=== PATIENT | male | born 1965 | race Caucasian/White ===

== ENCOUNTER 2022-09-15 09:47 | Day surgery (SDC) | payer MEDICAID, SELFPAY ==
--- NOTE | 2022-09-15 06:56 | W.PM.ENDDOP ---
Date of service: 09/15/22 Time of Service: 12:20 Endoscopy Report DATE OF PROCEDURE: 09/15/22 PRE-OP DIAGNOSIS: Dysphagia POST-OP DIAGNOSIS: other (esophageal stricture, retained food) PROCEDURE: EGD with biopsies SURGEON: Bianca Frost ANESTHESIA TYPE: General:No Airway ESTIMATED BLOOD LOSS: 2 PATHOLOGY: other (Bx of GE junction) COMPLICATIONS: None DISPOSITION: same day INDICATIONS: Mr. Nettles is a pleasant 57-year-old gentleman who comes in with unintentional weight loss, dysphagia and esophageal candidiasis which was treated 3 times.? I had a long discussion with him and his about the differential diagnosis with what I saw on his barium swallow.? The concern because of his smoking history is that of esophageal cancer.? Certainly he could have a severe scarring from uncontrolled reflux which was not treated for a long time.? He tells tells me that he does not feel like the omeprazole is really helping.? We discussed that if he is got scar tissue the omeprazole is not going to help with the scar tissue but it would prevent more reflux.? For now I would like him to continue that.? I would like him to eat a soft diet and use protein shakes to help keep his weight stable.? He was 135 pounds in February and he is down to 111.? His BMI is only 15.7.? We discussed the pathophysiology of reflux as well as the potential for cancer.? We reviewed the procedure in detail using a pamphlet with pictures.? I answered all of their questions to their satisfaction.? They seem to have a good understanding of the risks and benefits.? I do feel he is at increased risk for esophageal injury if I do have to dilate.? This was discussed with the patient and he understands.? Risks, benefits and complications have been reviewed. Complications include but are not limited to bleeding, pain, perforation, sore throat, aspiration, and adverse reaction to the medications.? Questions were entertained and answered to their satisfaction and they wished to proceed. No guarantees were given or implied.? I also discussed the risk of aspiration which in his case could be severe because of his underlying COPD.? If he does aspirate he may require admission for antibiotics and prednisone. FINDINGS: narrowing of esophagus. No mass. mild inflammation Retained food. No inflammation of the stomach PROCEDURE DESCRIPTION: After informed consent was obtained the patient was take to the procedure room and placed in a supine position. Monitors were applied and a time out was done. The patients name, date of , procedure type, allergies to medications and metal in their body was reviewed. A bite block was placed and the patient was sedated. Once sedated and comfortable the gastroscope was advanced through the oropharynx which was grossly normal into the esophagus. The proximal and mid-esophagus were normal. In the distal esophagus there was narrowing of the esophagus noted. I was unable top place the scope through the distal esophagus at the GE junction. A balloon was placed through the scope and through the GE junction. The GE junction was gently dialted to 20 cm. The balloon was removed and the scope was advanced into the stomach. retained food and fluid was noted within the stomach. The pylorus was noted to be narrowed as well and it was dilated with the smae soft balloon to 20 cm. The scope was then easily advanced through the pylorus into the 3rd portion of the duodenum. The duodenum was noted to be normal. The scope was retracted back into the stomach There were no ulcers. The scope was retroflexed. The cardia and fundus were noted to be normal. There was no hiatal hernia noted. The scope was retracted back into the esophagus and biopsies were done of the GE junction to rule out Rojo's. The Z line was regular. The GE junction was at 39 cm. The scope was removed and the patient was woken up and taken back to [facility] in stable condition. Follow up: Will order a gastric emptying study.
--- NOTE | 2022-09-15 06:57 | W.PM.DSUDISC ---
Date of service: 09/15/22 Time of Service: 12:06 Discharge Plan Disposition Patient Disposition: Home Condition: Stable Discharge Details Reason For Visit: EGD Attending Provider: Bianca Frost Primary Care Provider: Karine Andrews Home Meds and New Rx's Prescriptions: Continued diltiazem HCl 180 mg capsule,extended release 24 hr 180 mg PO DAILY omeprazole 40 mg capsule,delayed release(DR/EC) 40 mg PO BID budesonide-formoterol [Symbicort] 160-4.5 mcg/actuation HFA aerosol inhaler 2 puff inhalation BID levalbuterol tartrate [Xopenex HFA] 45 mcg/actuation HFA aerosol inhaler 2 puff inhalation Q4H sildenafil 100 mg tablet 100 mg PO DAILY PRN Rx Instructions: take one half to one tablet po as needed for erectile dysfunction testosterone cypionate 200 mg/mL kit 200 mg IM Q2W Rx Instructions: 200mg/ml solution. Inject 0.5ml IM every 14 days. Stiolto Respimat 2.5-2.5 mcg/actuation mist 2 puff inhalation DAILY ibuprofen 200 mg Tablet 200 mg PO PRN Discharge Instructions Instructions: Esophageal Dilation (DC), Esophageal Stricture (DC), GI (Gastrointestinal) Soft Diet (DC) Additional Instructions: Findings: narrowing of the esophagus minimal inflammation Follow up: 2 weeks Medications: Continue on Omeprazole 40 mg 2 x a day Test: an order was sent to [facility] for a Gastric emptying study Diet: soft diet until Tuesday Please call if you develop: fevers >101.5 Nausea or Vomiting Abdominal pain that is not transient Rectal bleeding that is more then a tbsp A hard abdomen and inability to pass gas DAY SURGERY UNIT POST ENDOSCOPY INSTRUCTIONS Instructions for everyone who is given Anesthesia: For your safety, please do the following for the next 24 Hours: a. Do not drive or operate dangerous equipment b. Do not drink alcohol beverages or use any recreational drugs for the first 24 hours or while taking pain medications. The medications in your body may have a reaction that can be dangerous. c. Do not make any important decisions or sign any important papers 1. Generally there are no restrictions on your activity after a day or so has gone by, but you may feel a bit fatigued for a few days. 2. After you arrive home you may have a light meal and return to a normal diet as you can tolerate it without feeling sick to your stomach. 3. After surgery, you may feel pain or discomfort. This should be only transient, but if it persists please contact your doctor. 4. If there are any questions regarding the findings of your procedure, please feel free to contact your doctor. 6. If you are unable to contact your doctor with a problem, contact the hospital at [phone]. 7. Continue all your regular medications unless directed otherwise. I understand the above instructions and have no questions. Signature of Patient or Responsible Adult Escort Date/Time Name of Responsible Adult Escort Signature of Nurse Date/Time Activity:: Activity as Tolerated Shower/Bathe:: 24 hours Diet:: soft DS: Diagnosis Discharge Diagnosis (1) Dysphagia: Status: Acute Asessment and Plan: Patient is seen and examined after their endoscopy. Patient has minimal sore throat. They have been able to tolerate liquids. They do not have any Nausea or Vomiting. They are not having any chest pain or shortness of breath. They have been able to pass gas and are not having any abdominal pain or distention. they have not vomited any blood. The vital signs have been stable-see nursing notes. We discussed findings on their endoscopy We reviewed the importance of lifestyle modifications- see diet recommendations We reviewed any new medications that the patient may be prescribed- see medicine reconciliation. Patient will either be sent a letter with the biopsy results or follow up in the office- see discharge instructions Patient was given explicit instructions for emergency follow up post endoscopy- see discharge instructions Patient verbalized understanding and was discharged in stable and satisfactory condition. See nursing notes.
[2022-09-15 10:20] VITALS: BP 133/79; PULSE 70; RESP 18; TEMP 36.7; O2SAT 99
[2022-09-15] MEDS: Lactated Ringers 1,000 ML 80 ML IV (10:25)
--- NOTE | 2022-09-15 10:40 | ANES.PREOP_ITS ---
General Info Date of Service Date Performed: 09/15/22 Height: 5 ft 11 in Weight: 51.1 kg Body Mass Index (BMI): 15.7 Surgical Procedure: Operation Date: 09/15/22 11:05 Proposed Procedure Side Surgeon p Gastroscopy with Dilation Bianca Frost MD Actual Procedure Side Surgeon p Gastroscopy with Dilation Not Applicable Bianca Frost MD Pre-Op Diagnosis Post-Op Diagnosis EGD Meds Allergies and Home Medications Allergies Allergy/AdvReac Type Severity Reaction Status Date / Time No Known Allergies Allergy Unverified 09/15/22 10:15 Home Medication Medication Instructions Recorded budesonide-formoterol HFA 160 2 puff inhalation BID 09/10/22 mcg-4.5 mcg/actuation aerosol inhaler (Symbicort) diltiazem HCl 180 mg capsule,24 180 mg PO DAILY 09/10/22 hr,extended release levalbuterol tartrate 45 2 puff inhalation Q4H 09/10/22 mcg/actuation aerosol inhaler (Xopenex HFA) omeprazole 40 mg capsule,delayed 40 mg PO BID 09/10/22 release sildenafil 100 mg tablet 100 mg PO DAILY PRN 09/10/22 testosterone cypionate 200 mg/mL 200 mg IM Q2W 09/10/22 intramuscular kit tiotropium 2.5 mcg-olodaterol 2.5 2 puff inhalation DAILY 09/10/22 mcg/actuation mist for inhalation (Stiolto Respimat) ibuprofen 200 mg tablet 200 mg PO PRN 09/15/22 Current Visit Medications: Current Medications Generic Name Dose Route Start Last Admin Trade Name Freq PRN Reason Stop Dose Admin Ringer's Solution 1,000 mls @ 80 mls/hr 09/15/22 06:00 IV 10/10/22 23:59 INFUSION [facility] IV Miscellaneous Supplies 1 each 09/15/22 06:00 Iv Access IV 10/10/22 23:59 DIRECTED [facility] Ondansetron HCl 4 mg 09/15/22 06:58 Ondansetron 4 Mg/2 Ml Vial IVP 10/15/22 06:57 Q4H PRN PRN Nausea / Vomiting Sodium Chloride 0 ml 09/15/22 06:00 Normal Saline Flush 10 Ml Syr IV 10/10/22 23:59 PRN PRN Sodium Chloride 0 ml 09/15/22 06:00 Normal Saline 10 Ml Vial IJ 10/10/22 23:59 DIRECTED PRN Sterile Water 0 ml 09/15/22 06:00 Water,Injection,Sterile 10 Ml Vial IJ 10/10/22 23:59 DIRECTED PRN PFSH Active Problems Active Problems: Problem Status Onset Code Dysphagia R13.10 Unintentional weight loss R63.4 Esophageal stricture K22.2 COPD (chronic obstructive pulmonary disease) J44.9 SVT (supraventricular tachycardia) I47.1 Medical History Medical History Collapse of right lung about 32 years ago approx age 25 History of COVID-19 2020 and 2022 Medical History Comments:: Pt. reports heart rate dropped low Surgical History Surgical History H/O right inguinal hernia repair as a child History of hydrocelectomy History of surgical removal of testicle as a child for torsion S/P thoracotomy with blebectomy and pleuredesis in 1993 Tobacco Smoking/Tobacco Use Status: Former Tobacco Use Alcohol Alcohol Intake: never Substance Use Substance use: Never Substance use type: does not use Vital Signs and Lab Results Vital Signs Most Recent Vital Signs in EMR: Most Recent Vital Signs Temp Pulse Resp BP Pulse Ox 36.7 C 70 18 133/79 99 09/15/22 10:20 09/15/22 10:20 09/15/22 10:20 09/15/22 10:20 09/15/22 10:20 Lab Results Blood Type / Crossmatch: No Data to Display Complete Blood Count: No Data to Display Complete Metabolic Panel: No Data to Display Liver Function Panel: No Data to Display Coagulation Panel: No Data to Display Cardiac Panel: No Data to Display Arterial Blood Gas: No Data to Display Venous Blood Gas: No Data to Display Pancreas Panel: No Data to Display Thyroid Panel: No Data to Display Infectious Disease: No Data to Display Blood Cultures: No Data to Display Toxicology Panel: No Data to Display Anesthesia Assessment and Plan Anesthesia History Personal History: No History of Anesthesia Complications and Other Family History: No Family History of Anesthesia Complications Exercise Tolerance Exercise Tolerance: Metabolic Equivalents<4 Pertinent Negatives Pertinent Negatives: No Symptoms of GERD Cardiac & Pulmonary Exam Cardiac Exam: Normal S1/S2 Heart Sounds Pulmonary Exam: Clear Bilateral Breath Sounds (decreased bilt.) Implantable Cardiac Device Does patient have a Pacemaker or an ICD?: No Airway Exam Known Difficult Airway: No Mallampati Class: 1 Mouth Opening: Normal (> 3cm) Thyromental Distance: Greater than 3 cm Neck Range of Motion: Full ROM Neck Circumference: Normal Teeth Condition: Normal Dentition ASA Classification ASA Score: ASA 3 Emergency Case?: No NPO Status NPO Status: NPO Clears >2 hours, Solids >8 hours Anesthesia Plan Resuscitation Status: Full Code Anesthesia Technique: General Anesthesia Airway Planned: Natural Airway Monitors Used: Standard Monitors
[2022-09-15 10:43] VITALS: BMI 15.7
--- NOTE | 2022-09-15 11:05 | ESO_PTH ---
PATIENT: Tho Lubin LOC: [facility] U#:[id number] AGE/SX: 57/M ROOM: RE09/15/[address]: Bianca Frost MD : 1965 BED: DIS: 09/15/2022 SPEC #: [id number] RECD: 09/16/22 12:37 STATUS: JUANY REJevon #: [id number] MARI: 09/15/22 11:[address]: Bianca Frost DEPT: Surgical Specimen RECD BY: Pati Valentino ENTERED: 09/16/22 12:38 SP TYPE: Eso CHRISTINE DR: Karine Andrews Tissues: 1 - ESOPHAGUS BIOPSY Procedures: GROSS AND MICRO LEVEL 4 Comments: [id number]
[2022-09-15 11:22] VITALS: BP 113/80; PULSE 63; RESP 18; TEMP 36.4; O2SAT 97
--- NOTE | 2022-09-15 11:49 | W.ANESPOSTOP ---
Postoperative Evaluation Date, Time and Location Date Performed: 09/15/22 Time Performed: 11:49 Patient Location: Day Surgery Unit Vital Signs Most Recent Imported Vital Signs: Most Recent Vital Signs Temp Pulse Resp BP Pulse Ox 36.4 C L 63 18 113/80 97 09/15/22 11:22 09/15/22 11:22 09/15/22 11:22 09/15/22 11:22 09/15/22 11:22 Pain Score Most Recent Pain Score: Most Recent Pain Score Pain Level 0 09/15/22 10:20 Assessment Mental Status: Awake (Alert & Oriented to Patient Baseline) Airway and Respiratory Function: Patent airway with normal (patient baseline) respiratory exam Cardiovascular Function: Hemodynamically Stable Hydration Status: Adequately Hydrated Nausea & Vomiting: No Nausea or Vomiting Pain: Pt. Denies Any Pain Peripheral Nerve Block: Patient did not receive a nerve block
[2022-09-15 12:03] VITALS: BP 112/70; PULSE 65; RESP 18; TEMP 36.7; O2SAT 99
== END 2022-09-15 12:27 | disposition home or self-care (01) ==
PROVIDERS: PCP Family Medicine; Visit Provider Surgery
PROC: 0D758ZZ Dilation of Esophagus, Via Natural or Artificial Opening Endoscopic (ICD-10-PCS; CPT 43245; principal; 2022-09-15 11:00)
DX: K22.2 Esophageal obstruction (principal); R13.10 Dysphagia, unspecified; R63.4 Abnormal weight loss; Z68.1 Body mass index [BMI] 19.9 or less, adult; Z87.891 Personal history of nicotine dependence; K31.1 Adult hypertrophic pyloric stenosis; K22.89 Other specified disease of esophagus
CPT/HCPCS: 43245; 43249; 88305; J2001

== ENCOUNTER 2022-09-20 15:25 | Inpatient (IN) | payer MEDICAID, SELFPAY ==
[2022-09-20] VITALS (55 sets, daily range): BP systolic 110–147; BP diastolic 75–82; PULSE 67–87; RESP 10–23; TEMP 37.4–37.7; O2SAT 92–99
--- NOTE | 2022-09-20 | DI.CT_ITS ---
Exam(s) CT CHEST PE CTA EXAM: CT CHEST PE CTA CLINICAL HISTORY: esophageal stricture/hx of smoking. TECHNIQUE: Imaging Protocol: CT angiography of the chest was performed using pulmonary embolus francis col. Multi planar reconstructions were performed. CONTRAST MATERIAL: Intravenous: Omnipaque 350 Contrast volume: 100 cc COMPARISON: No exams were available for comparison FINDINGS: CHEST: PULMONARY ARTERIES: There are no intraluminal filling defects to suggest acute pulmonary emboli. LUNGS: Advanced emphysematous changes. . abutting the major fissure in the apical posterior segment of the left upper lobe is a partially cavitated 1.8 by 1.7 cm spiculated nodule.. In the right upper lobe, medially there is a 1.9 x 1.7 cm spiculated nodule. There is also a more peripherally located 7 mm nodule in the mid lateral right lung which is fissure related. There are no pleural effusions. MEDIASTINUM: No obvious hilar nor mediastinal adenopathy. Esophagus is significantly dilated due to the high-grade stricture, as seen on the recent barium swallow study. CARDIAC: Heart size is upper normal. There is no pericardial effusion.Caliber of the thoracic aorta is within normal limits. No dissection. There is no significant shift of the interventricular septum . PARTIALLY VISUALIZED UPPERMOST ABDOMEN: Cachexia. Renal cysts. Heart contrast seen in the stomach f rom barium swallow study performed earlier same date. OSSEOUS: No significant osseous lesions.No fractures.. IMPRESSION: 1. No evidence of acute pulmonary emboli. No evidence of pulmonary infarction.No pleural effusions. 2. However, there are spiculated nodules bilaterally which are suspicious for neoplasm, these in the apical posterior segment of the left upper lobe and medially in the right upper lobe. No obvious jose j nopathy. 3. Dilated esophagus which is related to the previously documented stricture at the GE junction RADIATION DOSE DELIVERED: 283.75mGy.cm Total DLP DATA REPOSITORY: All CT scans at this facility are submitted to the National Radiology Data Registry (NRDR) Dose Index Registry (DIR) with the [employer] (ACR). RADIATION OPTIMIZATION: All CT scans at this facility use at least one of these dose optimization te chniques: automated exposure control; mA and/or kV adjustment per patient size (includes targeted exa ms where dose is matched to clinical indication); or iterative reconstruction.
--- NOTE | 2022-09-20 15:30 | RT.EKG_ITS ---
APPROVED REPORT Exam: Resting ECG Reason for Exam: weakness Patient Location: E HR:72 bpm ECG Measurements Heart Rate 72 AXIS TN 137 P 86 QRSd 98 QRS 72 QT 388 T 20 QTc 424 Conclusion Sinus rhythm...normal P axis, V-rate 60- 99
[2022-09-20] MEDS: Lactated Ringers 1,000 ML 1000 ML IV (16:08)
[2022-09-20 16:12] LABS: Abs Immature Grans 0.02 10^3/uL (0.0-0.06); Absolute Basophil Count 0.06 10^3/uL (0.0-0.2); Absolute Eosinophil Count 0.02 10^3/uL (0.0-0.7); Absolute Lymphocyte Count 1.15 10^3/uL (1.2-3.4); Absolute Monocyte Count 0.42 10^3/uL (0.1-0.8); Absolute Neutrophil Count 7.18 10^3/uL (1.2-6.7); Basophils % 0.7; Eosinophils % 0.2; HCT 48.8 % (40.0-50.0); HGB 15.3 g/dL (13.5-17.5); Immature Grans % 0.2; MCH 28.4 pg (27.0-33.0); MCHC 31.4 % (32.0-36.0); MCV 91 fL (80-95); MPV 8.7 fL (8.0-11.0); Monocytes % 4.7; Neutrophils % 81.2; Platelet Count 441 10^3/uL (130-400); RBC 5.39 10^6/uL (4.36-5.78); RDW 12.6 % (11.8-14.1); RDW-SD 42.4 fL; WBC 8.85 10^3/uL (4.4-10.8)
[2022-09-20 16:21] LABS: Anion Gap 12.5 mmol/L (3-11); BUN 34 mg/dL (7-18); CO2 26.5 mmol/L (21.0-32.0); Calcium 9.2 mg/dL (8.5-10.1); Chloride 103 mmol/L (98-107); Estimated GFR 87.24 (mL/min/1.73m2); Glucose 86 mg/dL (74-106); Potassium 4.3 mmol/L (3.5-5.1); Sodium 142 mmol/L (136-145)
--- NOTE | 2022-09-20 16:21 | NUR.NOTE ---
Nursing Note: Pt taking for barium study at 1605. Pt stable and in no signs of acute distress.
--- NOTE | 2022-09-20 16:43 | DI.RAD_ITS ---
Exam(s) RF BARIUM SWALLOW EXAM: RF BARIUM SWALLOW CLINICAL HISTORY: dysphagia TECHNIQUE: 2D and realtime digital imaging was performed. CONTRAST MATERIAL: Oral barium Oral water soluble contrast was administered. COMPARISON: No exams were available for comparison FINDINGS: ESOPHAGRAM: Esophagram on this ER patient was performed standing with single contrast technique. Swallowing mechanism is grossly intact and there was no aspiration evident. No evidence of Zenker's diverticulum. No obvious proximal stricture. Main finding here is distally at the GE junction where there is a tight stricture and dilatation of t he esophagus above this level. A small amount of barium does trickle through into the stomach which appears empty. IMPRESSION: High-grade stricture at the GE junction. RADIATION DOSE DELIVERED: lia Raphael=14.4 mGy
[2022-09-20] MEDS: Barium Sulfate 60% W/V 355 ML BTL PO (16:50)
[2022-09-20] MEDS: Barium Sulfate 98% W/W 140 ML BTL PO (17:01)
--- NOTE | 2022-09-20 17:26 | W.ED.GENAD ---
Discharge Plan Disposition Patient Disposition: Admit to [facility] Condition: Stable Discharge Details Clinical Impression: Esophageal stricture Admit Date/Time: 09/20/22 19:57 Admit Provider: Dulce Maria Nichole Attending Provider: Dulce Maria Nichole Primary Care Provider: Karine Andrews ED Provider: Pati Farris Discharge Data Discharge Date/Time-TO BE ENTERED AT DEPARTURE: 09/20/22 18:30 Medical Decision Making 57-year-old gentleman with history of COPD and dysphagia, status post esophageal dilation on September 15, pathology negative upon review Patient is alert, oriented, cachectic, appears chronically ill, oropharynx patent, uvula midline, moist mucous membranes, no stridor, lungs clear to auscultation, maintaining secretions Labs are consistent with dehydration today, a barium swallow was ordered after discussing with Dr. Nichole, on-call general surgeon, recommendation for admission and likely need for additional intervention after reviewing barium swallow with high-grade stricture noted distally at the GE junction Dr. Nichole to admit patient for further evaluation, patient agreeable to admission at this time IV fluid hydration was initiated and Dr. Nichole to admit patient, stable condition HPI General Date/Time Provider Initiated Documentation: 09/20/22 15:30. HPI Narrative: This 57-year-old male presents with report of dysphagia acute on chronic. Patient states he had dental extraction and in February and developed some difficulty swallowing thereafter. He was told he had several strictures and has had them dilated, the last dilation was on the fifth, he felt great the next day but then his symptoms returned the following day, he states he is able to swallow small amounts of fluid and food but thinks most of it is vomiting within minutes of ingestion. In he states that his symptoms are worse than his initial presentation after being dilated. He denies any chest pain, shortness of breath, he does feel weak today per patient. Denies any fever or chills. Denies any chest pain or current shortness of breath. Related Data Home Medications Medication Instructions Recorded Confirmed budesonide-formoterol HFA 160 2 puff inhalation BID 09/10/22 09/20/22 mcg-4.5 mcg/actuation aerosol inhaler (Symbicort) diltiazem HCl 180 mg capsule,24 180 mg PO DAILY 09/10/22 09/20/22 hr,extended release levalbuterol tartrate 45 2 puff inhalation Q4H 09/10/22 09/20/22 mcg/actuation aerosol inhaler (Xopenex HFA) omeprazole 40 mg capsule,delayed 40 mg PO BID 09/10/22 09/20/22 release sildenafil 100 mg tablet 100 mg PO DAILY PRN 09/10/22 09/20/22 testosterone cypionate 200 mg/mL 200 mg IM Q2W 09/10/22 09/20/22 intramuscular kit tiotropium 2.5 mcg-olodaterol 2.5 2 puff inhalation DAILY 09/10/22 09/20/22 mcg/actuation mist for inhalation (Stiolto Respimat) ibuprofen 200 mg tablet 200 mg PO PRN 09/15/22 Allergies Allergy/AdvReac Type Severity Reaction Status Date / Time No Known Allergies Allergy Unverified 09/20/22 15:35 General Stated Complaint: [facility] KAYKAY: 3 PFSH All Active Problems (Updated 09/21/22 @ 08:24 by MARAL Anderson) Retained food in stomach (Acute) Dysphagia (Acute) Unintentional weight loss (Acute) Esophageal stricture (Acute) COPD (chronic obstructive pulmonary disease) (Chronic) sees Dr. Melendez On 1.5 L of O2 at Night SVT (supraventricular tachycardia) (Chronic) sees Cardiology in [place] ([place]) Medical History Collapse of right lung about 32 years ago approx age 25 History of COVID-19 2020 and 2022 Surgical History H/O right inguinal hernia repair as a child History of esophagogastroduodenoscopy (~09/15/22) History of hydrocelectomy History of surgical removal of testicle as a child for torsion S/P thoracotomy with blebectomy and pleuredesis in 1993 Social History Smoking/Tobacco Use Status: Former Tobacco Use Quit Date: 03/14/18 Smoking risk assessment performed?: Yes Alcohol Intake: never Drug use: Never Substance use type: does not use Household members: spouse Housing: house Do you feel safe at home: Yes Do you feel safe in your relationship?: Yes Additional Social history: unable to assess [facility] Course Vital Signs Vital signs: Vital Signs Temperature 37.4 C 09/20/22 15:31 Pulse 78 09/20/22 15:31 Respiratory Rate 18 09/20/22 15:31 Pulse Oximetry 99 09/20/22 15:31 Temperature 37.4 C 09/20/22 15:31 Temperature Source Skin 09/20/22 15:31 Pulse 74 09/20/22 16:00 Pulse 73 09/20/22 16:10 Respiratory Rate 18 09/20/22 16:10 Respiratory Effort Normal 09/20/22 15:36 Blood Pressure 124/78 09/20/22 16:00 Blood Pressure Mean 90 09/20/22 16:00 Blood Pressure Position Sitting 09/20/22 15:31 Pulse Oximetry 97 09/20/22 17:07 Oxygen Delivery Method Room Air 09/20/22 15:31 Oxygen Flow Rate 0 09/20/22 15:31 Pain Level 0 09/20/22 15:31 Lab/Test Results Lab/Test Results: Laboratory Tests Range/Units 09/20/22 09/20/22 15:50 15:50 WBC (4.4-10.8) 10^3/uL 8.85 RBC (4.36-5.78) 10^6/uL 5.39 Hgb (13.5-17.5) g/dL 15.3 Hct (40.0-50.0) % 48.8 MCV (80-95) fL 91 MCH (27.0-33.0) pg 28.4 MCHC (32.0-36.0) % 31.4 L RDW (11.8-14.1) % 12.6 Plt Count (130-400) 10^3/uL 441 H MPV (8.0-11.0) fL 8.7 Immature Gran % 0.2 Neutrophils % 81.2 Lymphocytes % 13.0 Monocytes % 4.7 Eosinophils % 0.2 Basophils % 0.7 Nucleated RBC % (0.0-0.3) % 0.0 Absolute Neutrophils (1.2-6.7) 10^3/uL 7.18 H Absolute Lymphocytes (1.2-3.4) 10^3/uL 1.15 L Absolute Monocytes (0.1-0.8) 10^3/uL 0.42 Absolute Eosinophils (0.0-0.7) 10^3/uL 0.02 Absolute Basophils (0.0-0.2) 10^3/uL 0.06 Sodium (136-145) mmol/L 142 Potassium (3.5-5.1) mmol/L 4.3 Chloride (98-107) mmol/L 103 Carbon Dioxide (21.0-32.0) mmol/L 26.5 Anion Gap (3-11) mmol/L 12.5 H BUN (7-18) mg/dL 34 H Creatinine (0.70-1.30) mg/dL 1.0 Est GFR (CKD-EPI 2020) (mL/min/1.73m2) 87.24 Glucose (74-106) mg/dL 86 Calcium (8.5-10.1) mg/dL 9.2
--- NOTE | 2022-09-20 18:05 | W.PM.HP.N ---
Date of service: 09/20/22 Time of Service: 18:05 Assessment and Plan Assessment and plan (1) Esophageal stricture: Status: Acute Assessment and plan: -reccurrent following dilation in 09/15. worse than before pt cannot even swallow water/pills at this time. -admit for hydration/IV PPI and dilatiazem. We will have to put him in the ICU for diltiazem. Patient has a history of recurrent SVT and diltiazem controls this. -try IV decadron-and see how he responds to this in the next 12 hours. -possible EGD in am -[place] [facility] [place] This document was created with voice activated software and may contain errors. 75 mins spent with the patient today. (2) COPD (chronic obstructive pulmonary disease): Status: Chronic Assessment and plan: - Continue inhaler regimen. Patient is not on home oxygen. (3) SVT (supraventricular tachycardia): Status: Chronic History of Present Illness Narrative: Patient is a 49-year-old male well-known to the surgical service. He underwent a EGD with biopsy and dilation with Dr. Frost on 09/15. It appears to be a benign esophageal stricture. He gives no extensive history of reflux. He has been on a PPI but this does not seem to give any relief to his dysphagia symptoms. Biopsy of the GE junction was essentially normal. He has a significant stricture at the GE junction as well as the pylorus. He started having dysphagia symptoms after he had all his top teeth removed in March, and he thought it was because he was not doing well. He has subsequently obtained a upper dentition plate, but his symptoms did not improve. He had significant improvement of his symptoms 24 hours following the EGD. However in the last 36 hours his symptoms have recurred. At this point he cannot even swallow water or his own secretions. A barium swallow was done today?see [employer] for results. He has lost 20 pounds since this winter. He has a history of smoking. He has quit smoking. I do not know if he has had a pulmonary CT done in the past. Most of his healthcare is obtained at [facility]. He has never had a heart attack or stroke. He does not have diabetes. He does have COPD. He is not on ask oxygen. He had no problems with the anesthesia with his previous EGD ESOPHAGRAM: Esophagram on this ER patient was performed standing with single contrast technique. Swallowing mechanism is grossly intact and there was no aspiration evident.? No evidence of Zenker's diverticulum.? No obvious proximal stricture. Main finding here is distally at the GE junction where there is a tight stricture and dilatation of the esophagus above this level.? A small amount of barium does trickle through into the stomach which appears empty. IMPRESSION: High-grade stricture at the GE junction.? EGD 09/15 Once sedated and comfortable the gastroscope was advanced through the oropharynx which was grossly normal into the esophagus.? The proximal and mid-esophagus were normal.? In the distal esophagus there was narrowing of the esophagus noted. I was unable top place the scope through the distal esophagus at the GE junction. A balloon was placed through the scope and through the GE junction. The GE junction was gently dialted to 20 cm.? The balloon was removed and the scope was advanced into the stomach. retained food and fluid was noted within the stomach.? The pylorus was noted to be narrowed as well and it was dilated with the smae soft balloon to 20 cm. The scope was then easily advanced through the pylorus into the 3rd portion of the duodenum.? The duodenum was noted to be normal.? The scope was retracted back into the stomach ? There were no ulcers.? The scope was retroflexed.? The cardia and fundus were noted to be normal.? There was no hiatal hernia noted.? The scope was retracted back into the esophagus and biopsies were done of the GE junction to rule out Rojo's.? The Z line was regular. The GE junction was at 39 cm.? The scope was removed and the patient was woken up and taken back to [facility] in stable condition.? Follow up: Will order a gastric emptying study. Path: mild Nonspecific inflammation PFSH All Active Problems Retained food in stomach (Acute) Dysphagia (Acute) Unintentional weight loss (Acute) Esophageal stricture (Acute) COPD (chronic obstructive pulmonary disease) (Chronic) sees Dr. Melendez On 1.5 L of O2 at Night SVT (supraventricular tachycardia) (Chronic) sees Cardiology in [place] ([place]) Medical History Collapse of right lung about 32 years ago approx age 25 History of COVID-19 2020 and 2022 Surgical History H/O right inguinal hernia repair as a child History of esophagogastroduodenoscopy (~09/15/22) History of hydrocelectomy History of surgical removal of testicle as a child for torsion S/P thoracotomy with blebectomy and pleuredesis in 1993 Social History Smoking/Tobacco Use Status: Former Tobacco Use Quit Date: 03/14/18 Smoking risk assessment performed?: Yes Alcohol Intake: never Drug use: Never Substance use type: does not use Household members: spouse Housing: house Do you feel safe at home: Yes Do you feel safe in your relationship?: Yes Additional Social history: unable to assess [facility] Allergies and Home Medications Allergies Allergy/AdvReac Type Severity Reaction Status Date / Time No Known Allergies Allergy Unverified 09/20/22 15:35 Home Medications Medication Instructions Recorded Confirmed Type budesonide-formoterol HFA 160 2 puff inhalation BID 09/10/22 09/20/22 History mcg-4.5 mcg/actuation aerosol inhaler (Symbicort) diltiazem HCl 180 mg capsule,24 180 mg PO DAILY 09/10/22 09/20/22 History hr,extended release levalbuterol tartrate 45 2 puff inhalation Q4H 09/10/22 09/20/22 History mcg/actuation aerosol inhaler (Xopenex HFA) omeprazole 40 mg capsule,delayed 40 mg PO BID 09/10/22 09/20/22 History release sildenafil 100 mg tablet 100 mg PO DAILY PRN 09/10/22 09/20/22 History testosterone cypionate 200 mg/mL 200 mg IM Q2W 09/10/22 09/20/22 History intramuscular kit tiotropium 2.5 mcg-olodaterol 2.5 2 puff inhalation DAILY 09/10/22 09/20/22 History mcg/actuation mist for inhalation (Stiolto Respimat) ibuprofen 200 mg tablet 200 mg PO PRN 09/15/22 History Exam Const General: cooperative, no acute distress and frail appearing Nutritional Appearance: malnourished Orientation: alert, awake and oriented x3 Other: PHYSICAL EXAM GENERAL APPEARANCE: Alert, healthy appearance, oriented, x 3,? in no acute distress HYDRATION: Well hydrated HEAD, EYES, EARS, NECK, THROAT: Head is normocephalic, pupils equal, round, reactive to light and accommodation, ocular movement intact, sclera clear and no jaundice. ?Edentulous. Temporal muscle wasting NECK: no lymphadenopathy.? Trachea midline.? Neck supple.? No JVD LUNGS: normal respiration/normal chest excursion. ?Clear to auscultation bilaterally. ?No wheeze. ?HEART: Regular rate and rhythm. no murmurs EXTREMITY: No edema or cyanosis.? no leg pain, redness, swelling.? Muscle wasting ABDOMEN: soft and non-tender to palpation.? Normal bowel sounds.? Results Labs 09/20/22 15:50 09/20/22 15:50 Labs: Laboratory Results - last 24 hr 09/20/22 09/20/22 15:50 15:50 WBC 8.85 RBC 5.39 Hgb 15.3 Hct 48.8 MCV 91 MCH 28.4 MCHC 31.4 L RDW 12.6 Plt Count 441 H MPV 8.7 Immature Gran % 0.2 Neutrophils % 81.2 Lymphocytes % 13.0 Monocytes % 4.7 Eosinophils % 0.2 Basophils % 0.7 Nucleated RBC % 0.0 Absolute Neutrophils 7.18 H Absolute Lymphocytes 1.15 L Absolute Monocytes 0.42 Absolute Eosinophils 0.02 Absolute Basophils 0.06 Sodium 142 Potassium 4.3 Chloride 103 Carbon Dioxide 26.5 Anion Gap 12.5 H BUN 34 H Creatinine 1.0 Est GFR (CKD-EPI 2020) 87.24 Glucose 86 Calcium 9.2 Last Vital Signs Temp 37.4 C 09/20/22 15:31 Pulse 74 09/20/22 16:00 Resp 18 09/20/22 16:10 BP 124/78 09/20/22 16:00 Pulse Ox 97 09/20/22 17:07 Time Spent Time spent with Patient: >75 minutes Time was spent: preparing to see the patient(eg.review tests), obtaining and/or reviewing separately otained hiistory, ordering medications,tests, procedures, referring, communicating with other health plant care worker, indepentently interpreting results, counseling the patient and care coordination
[2022-09-20] MEDS: Normal Saline - Diluent 50 ML VIAL IJ (19:36)
[2022-09-20] MEDS: Omnipaque 350 MG/ML 100 ML BTL IJ (19:37)
[2022-09-20] MEDS: Normal Saline Flush 10 ML SYR IVP ×2 (19:41→20:25)
[2022-09-20] MEDS: Levalbuterol HFA 15 GM INH 2 PUFF IH (19:48)
[2022-09-20 19:53] LABS: Lab Add On Test DONE
--- NOTE | 2022-09-20 20:08 | DI.VRAD_ITS ---
PROCEDURE INFORMATION: Exam: CTA Chest With Contrast Exam date and time: 09/20/2022 7:36 PM Age: 57 years old Clinical indication: Other: Esophageal stricture/hx of smoking; Prior surgery; Surgery date: 6+ months; Surgery type: HX of R lung surgery May years ago after collapsed lung; Additional info: Recent ba swallow TECHNIQUE: Imaging protocol: Computed tomographic angiography of the chest with contrast. Exam focused on the arteries. 3D rendering (Not supervised by radiologist): MIP and/or 3D reconstructed images were created by the technologist. Radiation optimization: All CT scans at this facility use at least one of these dose optimization techniques: automated exposure control; mA and/or kV adjustment per patient size (includes targeted exams where dose is matched to clinical indication); or iterative reconstruction. Contrast material: OMNIPAQUE 350; Contrast volume: 60 ml; Contrast route: INTRAVENOUS (IV); COMPARISON: RF BARIUM SWALLOW 09/20/2022 4:15 PM FINDINGS: Pulmonary arteries: No pulmonary emboli. Aorta: No aortic aneurysm. No aortic dissection. Lungs: Severe emphysema observed. There is a right upper lobe nodule measuring up to 4 mm image 38 series 7. Additional 2 mm faint subpleural nodules in the right upper lobe. Cavitary lesions/reticulo nodular lesion measuring up to 1.6 cm in the left upper lobe posteriorly abutting the fissure with minimal adjacent reticulation Pleural spaces: No pneumothorax. No pleural effusion. Heart: No cardiomegaly. No pericardial effusion. Lymph nodes: No enlarged lymph nodes. Bones/joints: No acute fracture. Soft tissues: Unremarkable. Bilateral renal cysts. Dense contrast in the stomach and distal esophagus. Dilatation of the proximal and mid portions of the esophagus. Abnormal area of thickening/narrowing in the mid thoracic esophagus at the level of the abhi IMPRESSION: No pulmonary emboli observed Severe emphysema and bilateral nodules/lesions as described. Neoplasm not excluded Dense contrast in the mid esophagus. Suspected stricture/narrowing in the mid esophagus at the level of the abhi Dictated and Authenticated by: Jordon Ojeda MD. Ordering:FERNY العراقي MD
[2022-09-20] MEDS: DEXTROSE 5%-0.45% SALINE 1,000 ML 75 ML IV (20:19)
[2022-09-20] MEDS: Pantoprazole 40 MG VIAL IVP (20:25)
[2022-09-20] MEDS: Enoxaparin 40 MG/0.4 ML SYR SC (20:27)
[2022-09-20] MEDS: Dexamethasone 10 MG/ML VIAL IVP (20:28)
[2022-09-21] VITALS (44 sets, daily range): BP systolic 105–142; BP diastolic 66–85; PULSE 50–72; RESP 10–22; TEMP 35.8–37.2; O2SAT 93–100; BMI 16.0
[2022-09-21] MEDS: Budesonide/Formoterol 160/4.5 6 GM 60 PUFF INH IH ×2 (06:26→19:08)
[2022-09-21] MEDS: Levalbuterol HFA 15 GM INH 2 PUFF IH ×3 (06:38→16:53)
--- NOTE | 2022-09-21 08:28 | INITIAL_ITS ---
Date of service: 09/21/22 Time of Service: 08:28 Care Management Initial Assmt Initial Assessment REASON FOR HOSPITALIZATION:: esophageal stricture PREVIOUS FUNCTIONAL STATUS/SOCIAL/FAMILY SUPPORTS:: Kayden lives in a a single family home in [place] with his Natalia. They have 3 adult children who live locally and are supportive of the couple. 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 He is independent at baseline and receives no community services. CURRENT FUNCTIONAL STATUS:: Kayden was in the operating room when CM went to meet with him. His was available by phone and CM was able to obtain needed information from her. She does not anticipate that Kayden will need any additional services upon discharge. ADVANCE DIRECTIVES:: none on file Has patient been provided with info about the portal/API?: Yes CODE STATUS:: Full Code INSURANCE COVERAGE / FINANCIAL ISSUES:: Medicaid CURRENT HOME/COMMUNITY SERVICES/EQUIPMENT:: none PRIMARY CARE PHYSICIAN:: Karine Andrews POTENTIAL DISCHARGE NEEDS:: follow up with community providers ands plan of care PATIENT/FAMILY EDUCATION NEEDS:: Review of discharge instructions, limitations, diet, follow up plan, discuss [employer] TRANSPORTATION:: via private vehicle with family PLAN:: Anticipate Kayden will be discharged home with no new services. He will follow up with his community providers and plan of care as prescribed and [place] [employer] with family. CM will follow and assess for discharge needs. PFSH All Active Problems (Updated 09/21/22 @ 08:24 by MARAL Anderson) Retained food in stomach (Acute) Dysphagia (Acute) Unintentional weight loss (Acute) Esophageal stricture (Acute) COPD (chronic obstructive pulmonary disease) (Chronic) sees Dr. Melendez On 1.5 L of O2 at Night SVT (supraventricular tachycardia) (Chronic) sees Cardiology in [place] ([place]) Medical History Collapse of right lung about 32 years ago approx age 25 History of COVID-19 2020 and 2022 Surgical History H/O right inguinal hernia repair as a child History of esophagogastroduodenoscopy (~09/15/22) History of hydrocelectomy History of surgical removal of testicle as a child for torsion S/P thoracotomy with blebectomy and pleuredesis in 1993 Social History Smoking/Tobacco Use Status: Former Tobacco Use Quit Date: 03/14/18 Smoking risk assessment performed?: Yes Alcohol Intake: never Drug use: Never Substance use type: does not use Household members: spouse Housing: house Do you feel safe at home: Yes Do you feel safe in your relationship?: Yes Additional Social history: unable to assess [place]
[2022-09-21] MEDS: Tiotropium/Olodaterol 10 PUFF INHALER 2 PUFF IH (08:47)
[2022-09-21] MEDS: DEXTROSE 5%-0.45% SALINE 1,000 ML 75 ML IV ×2 (09:36→16:11)
--- NOTE | 2022-09-21 12:24 | W.ANESPRE ---
General Info Date of Service Date Performed: 09/21/22 Height: 5 ft 11 in Weight: 52 kg Body Mass Index (BMI): 16.0 Surgical Procedure: Operation Date: 09/21/22 12:50 Proposed Procedure Side Surgeon p Gastroscopy Dulce Maria Nichole, Meds Allergies and Home Medications Allergies Allergy/AdvReac Type Severity Reaction Status Date / Time No Known Allergies Allergy Unverified 09/20/22 15:35 Home Medication Medication Instructions Recorded budesonide-formoterol HFA 160 2 puff inhalation BID 09/10/22 mcg-4.5 mcg/actuation aerosol inhaler (Symbicort) diltiazem HCl 180 mg capsule,24 180 mg PO DAILY 09/10/22 hr,extended release levalbuterol tartrate 45 2 puff inhalation Q4H 09/10/22 mcg/actuation aerosol inhaler (Xopenex HFA) omeprazole 40 mg capsule,delayed 40 mg PO BID 09/10/22 release sildenafil 100 mg tablet 100 mg PO DAILY PRN 09/10/22 testosterone cypionate 200 mg/mL 200 mg IM Q2W 09/10/22 intramuscular kit tiotropium 2.5 mcg-olodaterol 2.5 2 puff inhalation DAILY 09/10/22 mcg/actuation mist for inhalation (Stiolto Respimat) ibuprofen 200 mg tablet 200 mg PO PRN 09/15/22 Current Visit Medications: Current Medications Generic Name Dose Route Start Last Admin Trade Name Freq PRN Reason Stop Dose Admin Budesonide/Formoterol Fumarate 2 puff 09/20/22 20:00 09/21/22 06:26 Budesonide/Formoterol 160/4.5 6 Gm 60 Puff Inh IH 2 puffs BID PAULETTE Administration Device 1 each 09/20/22 18:00 Inhaler, Assist Device DIRECTED PAULETTE Enoxaparin Sodium 40 mg 09/20/22 18:00 09/20/22 20:27 Enoxaparin 40 Mg/0.4 Ml Syr SC 40 mg Q24H PAULETTE Administration Sodium Chloride 500 mls @ 0 mls/hr 09/20/22 17:53 Saline 500ml Bag IV PRN PRN As Directed Dextrose/Sodium Chloride 1,000 mls @ 75 mls/hr 09/20/22 18:00 09/21/22 09:36 Dextrose 5%-0.45% Ns IV 75 mls/hr INFUSION PAULETTE Administration Diltiazem HCl 125 mg/ Sodium 125 mls @ 5 mls/hr 09/20/22 18:15 Chloride IV INFUSION PAULETTE Protocol 5 MG/HR IV Miscellaneous Supplies 1 each 09/20/22 18:00 Iv Access IV DIRECTED [facility] Levalbuterol 2 puff 09/21/22 12:07 Levalbuterol Hfa 15 Gm Inh IH Q4H PRN PRN Morphine Sulfate 2 mg 09/20/22 17:53 Morphine 2 Mg/Ml Syr IVP Q1H PRN PRN Ondansetron HCl 4 mg 09/20/22 17:53 Ondansetron 4 Mg/2 Ml Vial IVP Q4H PRN PRN Pantoprazole Sodium 40 mg 09/20/22 18:00 09/20/22 20:25 Pantoprazole 40 Mg Vial IVP 40 mg Q24H PAULETTE Administration Patient's Own 200 each 09/21/22 08:30 Medication ( IM Testosterone DIRECTED [facility] Cypionate 200 Mg/Ml Kit) Sodium Chloride 0 ml 09/20/22 17:53 09/20/22 20:25 Normal Saline Flush 10 Ml Syr IVP 30 ml PRN PRN Administration Tiotropium [place]/Olodaterol 2 puff 09/21/22 08:30 09/21/22 08:47 Tiotropium/Olodaterol 10 Puff Inhaler IH 2 inh DAILY PAULETTE Administration PFSH Active Problems Active Problems: Problem Status Onset Code Retained food in stomach K31.89 Dysphagia R13.10 Unintentional weight loss R63.4 Esophageal stricture K22.2 COPD (chronic obstructive pulmonary disease) J44.9 SVT (supraventricular tachycardia) I47.1 Medical History Medical History Collapse of right lung about 32 years ago approx age 25 History of COVID-19 2020 and 2022 Medical History Comments:: Pt. reports heart rate dropped low Surgical History Surgical History H/O right inguinal hernia repair as a child History of esophagogastroduodenoscopy (~09/15/22) History of hydrocelectomy History of surgical removal of testicle as a child for torsion S/P thoracotomy with blebectomy and pleuredesis in 1993 Tobacco Smoking/Tobacco Use Status: Former Tobacco Use Alcohol Alcohol Intake: never Substance Use Substance use: Never Substance use type: does not use Vital Signs and Lab Results Vital Signs Most Recent Vital Signs in EMR: Most Recent Vital Signs Temp Pulse Resp BP Pulse Ox 37.0 C 67 17 135/85 94 09/21/22 08:00 09/21/22 10:03 09/21/22 10:03 09/21/22 10:03 09/21/22 10:03 Lab Results 09/20/22 15:50 09/20/22 15:50 Blood Type / Crossmatch: No Data to Display Complete Blood Count: White Blood Count 8.85 10^3/uL (4.4-10.8) 09/20/22 15:50 Red Blood Count 5.39 10^6/uL (4.36-5.78) 09/20/22 15:50 Hemoglobin 15.3 g/dL (13.5-17.5) 09/20/22 15:50 Hematocrit 48.8 % (40.0-50.0) 09/20/22 15:50 Platelet Count 441 10^3/uL (130-400) H 09/20/22 15:50 Complete Metabolic Panel: Sodium 142 mmol/L (136-145) 09/20/22 15:50 Potassium 4.3 mmol/L (3.5-5.1) 09/20/22 15:50 Chloride 103 mmol/L (98-107) 09/20/22 15:50 Carbon Dioxide 26.5 mmol/L (21.0-32.0) 09/20/22 15:50 BUN 34 mg/dL (7-18) H 09/20/22 15:50 Creatinine 1.0 mg/dL (0.70-1.30) 09/20/22 15:50 Est GFR (CKD-EPI 2020) 87.24 (mL/min/1.73m2) 09/20/22 15:50 Magnesium 2.0 mg/dL (1.8-2.4) 09/20/22 15:50 Calcium 9.2 mg/dL (8.5-10.1) 09/20/22 15:50 Glucose 86 mg/dL (74-106) 09/20/22 15:50 Liver Function Panel: No Data to Display Coagulation Panel: No Data to Display Cardiac Panel: No Data to Display Arterial Blood Gas: No Data to Display Venous Blood Gas: No Data to Display Pancreas Panel: No Data to Display Thyroid Panel: No Data to Display Infectious Disease: No Data to Display Blood Cultures: No Data to Display Toxicology Panel: No Data to Display Imaging and Studies Imaging and Studies Study information below may be from another EMR and interpreted by another provider. Please see original notes in EMR for more complete details. EKG Summary: 10/03: sinus rhythm. Echocardiogram Summary: 2018: LVEF 55-60%, mild RV dilation with mild reduction in function. no hemodynamically sig valve dz. PAS 31. Pulmonary Function Summary: 2019: FVC 35%, FEV1 20%, severe obstruction. Anesthesia Assessment and Plan Anesthesia History Personal History: No History of Anesthesia Complications and Other Family History: No Family History of Anesthesia Complications Exercise Tolerance Exercise Tolerance: Metabolic Equivalents<4 Cardiac & Pulmonary Exam Cardiac Exam: Normal S1/S2 Heart Sounds Pulmonary Exam: Wheezing Present Implantable Cardiac Device Does patient have a Pacemaker or an ICD?: No Airway Exam Known Difficult Airway: No Mallampati Class: 1 Mouth Opening: Normal (> 3cm) Thyromental Distance: Greater than 3 cm Neck Range of Motion: Full ROM Neck Circumference: Normal Teeth Condition: Normal Dentition ASA Classification ASA Score: ASA 3 Emergency Case?: No NPO Status NPO Status: NPO Clears >2 hours, Solids >8 hours Anesthesia Plan Resuscitation Status: Full Code Anesthesia Technique: General Anesthesia Airway Planned: Natural Airway Monitors Used: Standard Monitors Preoperative Comments:: 57 yo male for EGD. Sig PMHx: COPD (o2 at night), SVT, former smoker Previous Anes: - EGD, prop/lido, airway, no issues.
[2022-09-21] MEDS: Metoprolol 5 MG/5 ML VIAL IVP (13:50)
--- NOTE | 2022-09-21 15:39 | W.PM.ENDDOP ---
Date of service: 09/21/22 Time of Service: 15:39 Endoscopy Report DATE OF PROCEDURE: 09/21/22 PRE-OP DIAGNOSIS: benign esophageal stricture at GE junction /hx of GERD POST-OP DIAGNOSIS: same SURGEON: Dulce Maria Nichole ANESTHESIA TYPE: General:No Airway ESTIMATED BLOOD LOSS: 0 PATHOLOGY: none sent COMPLICATIONS: None DISPOSITION: PACU PROCEDURE DESCRIPTION: After informed consent was obtained the patient was take to the procedure room and placed in a supine position. Monitors were applied and a time out was done. The patients name, date of , procedure type, allergies to medications and metal in their body was reviewed. A bite block was placed and the patient was sedated. Once sedated and comfortable, a 5 mm diagnostic gastroscope was advanced through the oropharynx which was grossly normal, into the esophagus. The proximal and mid-esophagus were coated with barium from [facility] 09/20. Proximal to the stricture, the esophagus is dilated. In the distal esophagus there was a stricture at 39 cm. It is approximately 3 to 4 cm long. The mucosa is appears normal. There is no signs of any tumors. There is no erosions or ulceration. I am able to pass a 5 mm diagnostic scope into the stomach. Upon retroflexion there is no abnormalities. There is no hiatal hernia. The scope was advanced into the stomach. There is no gastritis or duodenitis. The scope was not passed into the duodenum. Biopsies have been done previously and showed nonspecific inflammation at the GE junction. There is shows no signs of injury or damage from the previous dilation. But what I am visualizing today appears to be the same as what Dr. Frost saw on 09/15. That previous dilation only gave the patient relief for less than 72 hours. The scope was removed and the patient was woken up and taken back to PACU for close monitoring postprocedure secondary to his poor airway status.
--- NOTE | 2022-09-21 16:04 | W.ANESPOSTOP ---
Postoperative Evaluation Date, Time and Location Date Performed: 09/21/22 Time Performed: 16:04 Patient Location: PACU Vital Signs Most Recent Imported Vital Signs: Most Recent Vital Signs Temp Pulse Resp BP Pulse Ox 36.5 C 58 L 20 118/73 97 09/21/22 15:42 09/21/22 15:42 09/21/22 15:42 09/21/22 15:42 09/21/22 15:42 Pain Score Most Recent Pain Score: Most Recent Pain Score Pain Level 0 09/21/22 15:42 Assessment Mental Status: Awake (Alert & Oriented to Patient Baseline) Airway and Respiratory Function: Patent airway with normal (patient baseline) respiratory exam Cardiovascular Function: Hemodynamically Stable Hydration Status: Adequately Hydrated Nausea & Vomiting: No Nausea or Vomiting Pain: Pt. Denies Any Pain Peripheral Nerve Block: Patient did not receive a nerve block
--- NOTE | 2022-09-21 16:25 | NUR.NOTE ---
Nursing Note: pt transferred from ICU to room 206 on the med/surg floor. transfer was successful.
--- NOTE | 2022-09-21 16:42 | NUR.NOTE ---
Nursing Note: pt and present in the room. pt refused to use the call garcia and refused to call for assistance when needing to urinate. pt was aggressively rude. DEE DEE hernández witnessed and helped this freelance writer educate the pt and his about fall precautions and the risk of falling while having anesthesia in the system. charge nurse notified.
[2022-09-21] MEDS: Pantoprazole 40 MG VIAL IVP (17:50)
[2022-09-21] MEDS: POTASSIUM CHLORIDE/D5-0.45NACL 1,000 ML 100 MEQ IV (17:56)
--- NOTE | 2022-09-21 22:24 | PGE_ITS ---
Date of Service Date of service: 09/21/22 Time of Service: 17:30 Assessment and Plan Assessment and plan (1) Benign esophageal stricture: Status: Acute Assessment and plan: - I discussed with patient and his the findings at repeat endoscopy today. The CT shows severe emphysema but no signs of any tumor or mass effect on the esophagus. There is no signs of any tumor ulceration or erosion in the esophagus. And the biopsies were benign. Most likely he does have some degree of reflux that has been causing the stricture along with his history of smoking. He is not currently smoking anymore. He denies alcohol use. We discussed the importance of lifestyle modification for reflux including avoiding caffeine lying down after meals etc. I did discuss the case with GI at [facility]. They do feel he would be a candidate for advanced dilation. They will try to get him scheduled for a dilation on Tuesday. We do need to contact [facility] in the morning and see if they have an opening for him. Realistically it will most likely be . I discussed with the patient that what he could expect during the procedure, anesthesia, and the possibility of esophageal rupture which would necessitate surgery. We also discussed that this is a chronic condition and he is most likely going to require serial dilations to maintain patency. patient is very frustrated and angry at the idea of having to make lifestyle changes and routine doctors appointments. We discussed the nature of chronic stricture formation and the development of scar tissue and how this needs to inelasticity of the esophagus and why multiple dilations are necessary. In light of following lifestyle modification is important to avoid any further injury. We discussed dietary precautions going forward. He may need to be maintained on liquid supplementation for a while. We also discussed options if the dilation does not work, including esophagectomy versus feeding tube placement. He is quite emaciated and has pretty severe COPD/emphysema. His last echo was in 2018 at [facility]?see [employer]. He does follow with Dr. Mercado from pulmonary. We did do bedside PFTs today?see [employer]. FEV1-.58. He is not a good candidate for an esophagectomy. He has had previous bleb resection and pleurodesis for spontaneous pneumo. Continue with lifestyle modifications: no alcohol, tobacco products, Aspirin or NSAID's (ibuprofen, Motrin, Naprosyn, aleve, etc), soda pop/any carbonated beverages, caffeine (including tea & chocolate), and acidic foods, (tomatoes, citrus, onions, peppermints) spicy or fried/fatty foods. Do not lie down for 30 minutes after eating, and do not eat 2 hours prior to bedtime. Avoid wearing tight fitting clothing/ belts. -Nutrition was consulted and we will try maintaining him on Ensure clear. This document was created with voice activated software and may contain errors. 30 mins spent with the patient today. (2) Retained food in stomach: Status: Acute (3) Dysphagia: Status: Acute (4) Unintentional weight loss: Status: Acute (5) Esophageal stricture: Status: Acute (6) COPD (chronic obstructive pulmonary disease): Status: Chronic (7) SVT (supraventricular tachycardia): Status: Chronic (8) S/P thoracotomy: Objective Last Vital Signs Temp 36 C L 09/21/22 19:06 Pulse 56 L 09/21/22 19:06 Resp 20 09/21/22 19:06 BP 128/77 09/21/22 19:06 Pulse Ox 96 09/21/22 19:06 Time Spent with Patient Time Spent with Patient: 35-49 minutes Time was spent: preparing to see the patient(eg.review tests), obtaining and/or reviewing separately otained hiistory, ordering medications,tests, procedures, referring, communicating with other health care program resident, indepentently interpreting results, counseling the patient and care coordination
[2022-09-22] VITALS (13 sets, daily range): BP systolic 112–128; BP diastolic 70–78; PULSE 50–62; RESP 16–18; TEMP 35.9–36.7; O2SAT 95–100
[2022-09-22] MEDS: POTASSIUM CHLORIDE/D5-0.45NACL 1,000 ML 100 MEQ IV ×3 (03:02→22:16)
[2022-09-22] MEDS: Budesonide/Formoterol 160/4.5 6 GM 60 PUFF INH IH ×2 (07:42→19:09)
[2022-09-22] MEDS: Tiotropium/Olodaterol 10 PUFF INHALER 2 PUFF IH (07:42)
--- NOTE | 2022-09-22 09:20 | PDOC.CMPRO ---
Date of service: 09/22/22 Time of Service: 09:20 Care Management Progress Note Progress Note Text Progress Note Text: S/O:Kayden was sitting up in bed when CM met with him. He was polite and agreeable to conversation but not very talkative. Kayden stated that he is a bit bored. He is anxious to transfer to [facility] to have the esophageal dilation procedure. He has been unable to eat for some time and hopes that he will be able to do so after the procedure. He understands that he may not go to [facility] until tomorrow. Kayden did say that when he had the Endoscopy yesterday they were able to rule out a malignancy and he was happy about that. A: Tho is a 57 year old man admitted on 09/20/22 with an esophageal stricture P: Anticipate Kayden will be discharged home with no new services. He will follow up with his community providers and plan of care as prescribed and transport with family. CM will follow and assess for discharge needs.
[2022-09-22] MEDS: Metoprolol 5 MG/5 ML VIAL IVP ×2 (12:25→18:21)
[2022-09-22] MEDS: Normal Saline Flush 10 ML SYR IVP (12:26)
--- NOTE | 2022-09-22 15:16 | PHACLINREV_ITS ---
Pharmacy Admission Review Admission Clinical Review Admission Pharmacy Review: (Updated 09/21/22 @ 22:25 by Dulce Maria Nichole DO) Benign esophageal stricture (Acute) Retained food in stomach (Acute) Dysphagia (Acute) Unintentional weight loss (Acute) Esophageal stricture (Acute) No Known Allergies Allergy (Unverified 09/20/22 15:35) Resuscitation Status Full Code Height 5 ft 11 in Weight 52.2 kg Comments Comments/Follow Ups: Watch, VS, labs and for med changes (possible renal dose adjustments). Pharmacy Admission Review Renal Dosing Renal Dosing: BUN 34 mg/dL (7-18) H 09/20/22 15:50 Creatinine 1.0 mg/dL (0.70-1.30) 09/20/22 15:50 Medications needing adjustments: Reviewed (Crcl ~59 mL/min current meds okay) Anticoagulation Anticoagulation: Hgb 15.3 g/dL (13.5-17.5) 09/20/22 15:50 Hct 48.8 % (40.0-50.0) 09/20/22 15:50 Plt Count 441 10^3/uL (130-400) H 09/20/22 15:50 Creatinine 1.0 mg/dL (0.70-1.30) 09/20/22 15:50 DVT Prophylaxis: Reviewed (SCDs ordered, chemical discontinued yesterday due to potential procedure at [facility]) Therapeutic Anticoagulation: N/A Opiate Usage Evaluate Pain Scale/Pains Meds: Reviewed (patient has not used any doses of opioids so far this admission) Scheduled Bowel Reg ordered if on Opiates?: No Relevant Labs Relevant Labs: Sodium 142 mmol/L (136-145) 09/20/22 15:50 Potassium 4.3 mmol/L (3.5-5.1) 09/20/22 15:50 Chloride 103 mmol/L (98-107) 09/20/22 15:50 Magnesium 2.0 mg/dL (1.8-2.4) 09/20/22 15:50 Electrolytes, C-Reactive P, ESR: Reviewed DM Control DM Control: Reviewed (No DM noted in pt's medical history, no A1c on file) Cardiac Review BP, HR, EF%: Reviewed (HR low to normal and BP mostly within normal limits) QTc Review QTc: Reviewed (QTc 424 on admission) IV to PO Switch IV Medications: Reviewed (IV meds continue due to dysphagia) Home Meds Home Med List reviewed: Reviewed (patient is on both symbicort and stiolto) Relevent Home Meds Not ordered & why?: diltiazem (drip was discontinued and pt put on IVP metoprolol), ibuprofen (PRN), omeprazole (has pantoprazole ordered), sildenafil (PRN), Current Meds Current Medication Order Review: Reviewed Comments Comments/Follow Ups: Watch, VS, labs and for med changes (possible renal dose adjustments).
--- NOTE | 2022-09-22 17:45 | W.PM.PROGNOT ---
Date of Service Date of service: 09/22/22 Time of Service: 17:47 Assessment and Plan Assessment and plan (1) Benign esophageal stricture: Status: Acute Assessment and plan: We have made arrangements for transfer down to [facility] tomorrow for repeat EGD and dilation. Subjective Subjective Interval history since last seen: Tho said he feels a little better than the days before. He has been tolerating some slow sips of liquids. He denies any dysphagia today. Exam GI Other: His abdomen soft and nondistended. He is not tender. Objective Last Vital Signs Temp 98.1 F 09/22/22 15:43 Pulse 58 L 09/22/22 15:43 Resp 17 09/22/22 15:43 BP 123/71 09/22/22 15:43 Pulse Ox 95 09/22/22 15:43 Time Spent with Patient Time Spent with Patient: <25 minutes Time was spent: preparing to see the patient(eg.review tests) and counseling the patient
[2022-09-22] MEDS: Pantoprazole 40 MG VIAL IVP (18:26)
[2022-09-22] MEDS: Levalbuterol HFA 15 GM INH 2 PUFF IH (18:37)
[2022-09-23 03:10] VITALS: BP 114/72; PULSE 54; RESP 16; TEMP 36.1; O2SAT 98
[2022-09-23 05:32] VITALS: PULSE 52
[2022-09-23 07:00] VITALS: PULSE 67
[2022-09-23] MEDS: Tiotropium/Olodaterol 10 PUFF INHALER 2 PUFF IH (07:03)
[2022-09-23] MEDS: Levalbuterol HFA 15 GM INH 2 PUFF IH (07:04)
[2022-09-23] MEDS: Budesonide/Formoterol 160/4.5 6 GM 60 PUFF INH IH (07:05)
[2022-09-23 07:44] VITALS: BP 120/77; PULSE 67; RESP 18; TEMP 36.7; O2SAT 92
--- NOTE | 2022-09-23 08:12 | PDOC.CMPRO ---
Date of service: 09/23/22 Time of Service: 08:12 Care Management Progress Note Progress Note Text Progress Note Text: S/O:Kayden was transferred to [facility] today for an EGD and esophageal dilation. He left early in the day and had not returned when CM went to meet with him. Kayden was able to tolerate about 300ml of oral fluid intake yesterday. Kayden returned from around 4pm. He informed that he really wants to be discharged home tonight. sent a message to Dr. Nichole who indicated that he would need to be able to tolerate drinking liquids before he could go home. Kayden was given Boost and water and seemed to tolerate them well. A: Tho is a 57 year old man admitted on 09/20/22 with an esophageal stricture P: Anticipate Kayden will be discharged home with no new services. He will follow up with his community providers and plan of care as prescribed and transport with family. CM will follow and assess for discharge needs.
[2022-09-23] MEDS: Normal Saline Flush 10 ML SYR IVP (08:18)
[2022-09-23] MEDS: POTASSIUM CHLORIDE/D5-0.45NACL 1,000 ML 100 MEQ IV (08:19)
--- NOTE | 2022-09-23 09:58 | PGE_ITS ---
Date of Service Date of service: 09/23/22 Time of Service: 09:58 Assessment and Plan Assessment and plan (1) Benign esophageal stricture: Status: Acute Assessment and plan: Her GI at [facility]. The stricture was not amendable to dilation. SHe thinks she may have achalasia. He has a manometry appointment scheduled at [facility] per GI. The patient should be maintained on a clear to pur?ed diet. He will need to do clear Ensure or boost 5-6 a day to maintain weight and nutritional status. (2) Unintentional weight loss: Status: Acute (3) COPD (chronic obstructive pulmonary disease): Status: Chronic Objective Last Vital Signs Temp 36.7 C 09/23/22 07:44 Pulse 67 09/23/22 07:44 Resp 18 09/23/22 07:44 BP 120/77 09/23/22 07:44 Pulse Ox 92 09/23/22 07:44 Time Spent with Patient Time Spent with Patient: 25-34 minutes Time was spent: preparing to see the patient(eg.review tests), referring, communicating with other health healthcare project manager, counseling the patient and care coordination
[2022-09-23 15:52] VITALS: BP 128/84; PULSE 63; RESP 19; TEMP 36.7; O2SAT 93
[2022-09-23 16:31] VITALS: PULSE 58
[2022-09-23] MEDS: Acetaminophen 325 MG TAB PO (16:51)
--- NOTE | 2022-09-23 17:35 | W.PM.DS.N ---
Date of service: 09/23/22 Time of Service: 17:35 DS: Diagnosis Discharge Diagnosis (1) Benign esophageal stricture: Status: Acute (2) Unintentional weight loss: Status: Acute (3) COPD (chronic obstructive pulmonary disease): Status: Chronic Discharge Plan Disposition Condition: Stable Condition: Fair Discharge Details Reason For Visit: Esophageal stricture Admit Date/Time: 09/20/22 19:57 Admit Provider: Dulce Maria Nichole Attending Provider: Dulce Maria Nichole Primary Care Provider: Karine Andrews Home Meds and New Rx's Prescriptions: Continued diltiazem HCl 180 mg capsule,extended release 24 hr 180 mg PO DAILY budesonide-formoterol [Symbicort] 160-4.5 mcg/actuation HFA aerosol inhaler 2 puff inhalation BID levalbuterol tartrate [Xopenex HFA] 45 mcg/actuation HFA aerosol inhaler 2 puff inhalation Q4H sildenafil 100 mg tablet 100 mg PO DAILY PRN Rx Instructions: take one half to one tablet po as needed for erectile dysfunction testosterone cypionate 200 mg/mL kit 200 mg IM Q2W Rx Instructions: 200mg/ml solution. Inject 0.5ml IM every 14 days. Stiolto Respimat 2.5-2.5 mcg/actuation mist 2 puff inhalation DAILY Discontinued omeprazole 40 mg capsule,delayed release(DR/EC) 40 mg PO BID ibuprofen 200 mg Tablet 200 mg PO PRN Discharge Instructions Additional Instructions: Post?EGD?Instruction ? ?You had anesthesia for your EGD/stomach scope today.? For your safety, please do the following for the next twenty-four (24) hours: Do Not operate a motor vehicle (car, truck, motorcycle, etc.) Do Not drink alcoholic beverages or use any recreational drugs for the first 24 hours or while taking pain medications. The medications in your body may have a reaction that can be dangerous. Do Not make any important decisions or sign any important papers ? You have just had a gastroscopy (EGD) or upper GI tract examination. It is important for your smooth recovery that you carefully follow the recommendations below. Do not hesitate to call if any questions should arise about your anesthesia, condition, or care. -Symptoms you may experience during the next 24 hours: ?1. Mild abdominal pain or excessive gas or a bloated feeling which improves with rest, liquids, eating? slightly, and walking as tolerated. 2. Drowsiness and/or forgetfulness because of the medications you were given. ?3. Throat numbness for about 1 hour. 4. A sore throat which you can treat with throat lozenges or by gargling with salt water 4-5 times a day. 5. Redness at the site of your IV which you can treat with warm compresses. ? SPECIAL INSTRUCTIONS: 4. No lifting over 20 pounds or strenuous activity for the first 24 hours after your procedure. After 24 hours there are no restrictions on your activity, but you may feel fatigued for a few days. No alcohol, tobacco products, Aspirin or NSAID's (ibuprofen, Motrin, Naprosyn, aleve, etc).? Try to limit/avoid:? soda pop/any carbonated beverages, caffeine (including tea & chocolate), and acidic foods, (tomatoes, citrus, onions, peppermints) spicy or fried/fatty foods. Do not lie down for 30 minutes after eating, and do not eat 2 hours prior to bedtime. Avoid wearing tight fitting clothing/ belts. Call the office at [phone] (Office) or [phone] (Hospital), or go to the ER right away if you notice any of the followin. Vomiting blood and /or ?coffee ground? material. ?2. Worsening of abdominal pain or cramping. ?3. Trouble with breathing, cough, and/or fever (temperature above 101.5 F). 4. Increasing pain with swallowing. ?5. Chest pain. 6. Any new symptoms. 7. Worsening of the redness at the IV site -thin liquids only. Breeze protein supplements 4-5 a day -Continue with lifestyle modifications: no alcohol, tobacco products, Aspirin or NSAID's (ibuprofen, Motrin, Naprosyn, aleve, etc), soda pop/any carbonated beverages, caffeine (including tea & chocolate), and acidic foods, (tomatoes, citrus, onions, peppermints) or spicy foods. Do not lie down for 30 minutes after eating, and do not eat 2 hours prior to bedtime. Avoid wearing tight fitting clothing/ belts -schedule output f/u w/ nutrition -F/u w/ [facility] as scheduled for further testing. Activity:: See above Activity:: See above Equipment/Supplies:: No Equipment Needed Diet:: See above DS: Summary Time Spent with Patient providing and/or coordinating discharge services: Less than 30 minutes Status at Discharge Functional status at discharge: independent ambulation Overall status at discharge: patient is not back to baseline Mental Status: mental status grossly normal Speech and Movement: speech and movement normal Mood: congruent mood Affect: normal affect Exam Psych Mental Status: mental status grossly normal Speech and Movement: speech and movement normal Mood: congruent mood Affect: normal affect DS: Data Vitals/I&O Vitals and I&O: Vital Signs Temperature 36.7 C 09/23/22 15:52 Temperature Source Tympanic 09/23/22 15:52 Pulse 58 L 09/23/22 16:31 Pulse Rhythm Regular 09/23/22 16:35 Pulse 60 09/21/22 14:10 Respiratory Rate 19 09/23/22 15:52 Respiratory Effort Normal, Non-Labored 09/23/22 16:35 Respiratory Depth Normal 09/23/22 16:35 Respiratory Pattern Normal 09/23/22 16:35 Blood Pressure 128/84 09/23/22 15:52 Blood Pressure Mean 85 09/21/22 14:10 Blood Pressure Position Sitting 09/21/22 12:20 Pulse Oximetry 93 09/23/22 15:52 Oxygen Delivery Method Room Air 09/23/22 15:52 Oxygen Flow Rate 0 09/23/22 15:52 Pain Level 0 09/23/22 07:44 Intake & Output 09/22/22 09/23/22 09/23/22 23:59 11:59 23:59 Intake Total 2223.334 / 3133.334 1000 / 1000 Output Total 425 / 2525 200 / 500 300 / 500 Balance 1798.334 / 608.334 800 / 500 -300 / 500 Intake: IV 1923.334 / 2833.334 1000 / 1000 Oral 300 / 300 Output: Urine 425 / 2525 200 / 500 300 / 500 Other: Urine Color Yellow Yellow Urine Appearance Clear Clear Clear Urine Odor Normal None Voiding Methods Urinal Urinal PFSH All Active Problems Benign esophageal stricture (Acute) Retained food in stomach (Acute) Dysphagia (Acute) Unintentional weight loss (Acute) Esophageal stricture (Acute) COPD (chronic obstructive pulmonary disease) (Chronic) sees Dr. Melendez On 1.5 L of O2 at Night SVT (supraventricular tachycardia) (Chronic) sees Cardiology in [place] ([facility]) Medical History Collapse of right lung about 32 years ago approx age 25 History of COVID-19 2020 and 2022 Surgical History H/O right inguinal hernia repair as a child History of esophagogastroduodenoscopy (~09/15/22) History of hydrocelectomy History of surgical removal of testicle as a child for torsion S/P thoracotomy with blebectomy and pleuredesis in 1993 Social History Smoking/Tobacco Use Status: Former Tobacco Use Quit Date: 03/14/18 Smoking risk assessment performed?: Yes Alcohol Intake: never Drug use: Never Substance use type: does not use Household members: spouse Housing: house Do you feel safe at home: Yes Do you feel safe in your relationship?: Yes Additional Social history: unable to assess [facility] Time Spent with Patient Time Spent with Patient: <45 minutes Time was spent: preparing to see the patient(eg.review tests), referring, communicating with other health child day care teacher, counseling the patient and care coordination
--- NOTE | 2022-09-24 13:38 | W.PFT ---
Date of service: 09/21/22 Time of Service: 16:57 Pulmonary Function Test Result Indications: Esophageal stricture Interpretation Spirometry: Patient only performed post Xopenex spirometry. There is very severe airflow limitation. Impression Very severe airflow obstruction post Xoponex. Clinical Correlation therefore is recommended.
== END 2022-09-23 18:13 | disposition home or self-care (01) | DRG 392 ==
LOC: ER 15:40 → ICU 18:34 → MS 09-21 15:27
PROVIDERS: Admitting Provider Surgery; Emergency Provider Physician Assistant; PCP Family Medicine; Visit Provider Surgery
PROC: 0DJ68ZZ Inspection of Stomach, Via Natural or Artificial Opening Endoscopic (ICD-10-PCS; CPT 43235; principal; 2022-09-21 12:45)
DX: K22.2 Esophageal obstruction (principal); I47.1 Supraventricular tachycardia; Z68.1 Body mass index [BMI] 19.9 or less, adult; J44.9 Chronic obstructive pulmonary disease, unspecified; R63.4 Abnormal weight loss; Z87.891 Personal history of nicotine dependence; K31.89 Other diseases of stomach and duodenum
CPT/HCPCS: 43235; 36415; 71275; 80048; 93005; 94640; 96360; 96361; 99285; J1650; 74221; 83735; 85025; 93010; 94010; 94664; J1100; J2704; J3490

== ENCOUNTER 2023-01-31 14:10 | Outpatient (CLI) | payer MEDICAID, SELFPAY ==
[2023-01-31 10:17] LABS: Abs Immature Grans 0.01 10^3/uL (0.0-0.06); Absolute Basophil Count 0.03 10^3/uL (0.0-0.2); Absolute Eosinophil Count 0.06 10^3/uL (0.0-0.7); Absolute Lymphocyte Count 0.78 10^3/uL (1.2-3.4); Absolute Monocyte Count 0.46 10^3/uL (0.1-0.8); Absolute Neutrophil Count 6.38 10^3/uL (1.2-6.7); Basophils % 0.4; Eosinophils % 0.8; HCT 42.6 % (40.0-50.0); HGB 13.1 g/dL (13.5-17.5); Immature Grans % 0.1; Lymphocytes % 10.1; MCH 28.8 pg (27.0-33.0); MCHC 30.8 % (32.0-36.0); MCV 94 fL (80-95); MPV 8.6 fL (8.0-11.0); Neutrophils % 82.6; Platelet Count 270 10^3/uL (130-400); RBC 4.55 10^6/uL (4.36-5.78); RDW 13.7 % (11.8-14.1); RDW-SD 46.8 fL; WBC 7.72 10^3/uL (4.4-10.8)
[2023-01-31 10:46] LABS: ALT 13 U/L (16-63); AST 10 U/L (15-37); Albumin 2.8 g/dL (3.4-5.0); Alkaline Phosphatase 89 U/L (46-116); Anion Gap 1.8 mmol/L (3-11); BUN 19 mg/dL (7-18); Bilirubin, Total 0.4 mg/dL (0.2-1.0); CO2 35.2 mmol/L (21.0-32.0); CREATININE 0.7 mg/dL (0.70-1.30); Calcium 8.9 mg/dL (8.5-10.1); Chloride 101 mmol/L (98-107); FREE T4 0.92 ng/dL (0.76-1.46); Glucose 136 mg/dL (74-106); Magnesium 2.2 mg/dL (1.8-2.4); Potassium 4.3 mmol/L (3.5-5.1); Sodium 138 mmol/L (136-145); TSH 0.65 uIU/mL (0.36-3.74); Total Protein 6.6 g/dL (6.4-8.2)
== END 2023-01-31 14:11 | disposition home or self-care (01) ==
LOC: LBO 14:10
PROVIDERS: PCP Family Medicine; Visit Provider Internal Medicine Medical Oncology
DX: C78.7 Secondary malignant neoplasm of liver and intrahepatic bile duct; Z79.899 Other long term (current) drug therapy
CPT/HCPCS: 36415; 80053; 83735; 84439; 84443; 85025

== ENCOUNTER 2023-02-23 04:48 | Outpatient (CLI) | payer MEDICAID, SELFPAY ==
[2023-02-23 09:46] LABS: Abs Immature Grans 0.02 10^3/uL (0.0-0.06); Absolute Basophil Count 0.04 10^3/uL (0.0-0.2); Absolute Eosinophil Count 0.11 10^3/uL (0.0-0.7); Absolute Lymphocyte Count 1.07 10^3/uL (1.2-3.4); Absolute Monocyte Count 0.52 10^3/uL (0.1-0.8); Basophils % 0.6; Eosinophils % 1.7; HCT 40.9 % (40.0-50.0); HGB 12.8 g/dL (13.5-17.5); Immature Grans % 0.3; Lymphocytes % 16.1; MCH 29.2 pg (27.0-33.0); MCHC 31.3 % (32.0-36.0); MCV 93 fL (80-95); MPV 8.4 fL (8.0-11.0); Monocytes % 7.8; Neutrophils % 73.5; Platelet Count 333 10^3/uL (130-400); RBC 4.39 10^6/uL (4.36-5.78); RDW 13.2 % (11.8-14.1); RDW-SD 45.1 fL; WBC 6.66 10^3/uL (4.4-10.8)
[2023-02-23 10:13] LABS: ALT 18 U/L (16-63); AST 15 U/L (15-37); Albumin 3.3 g/dL (3.4-5.0); Alkaline Phosphatase 83 U/L (46-116); Anion Gap 2.9 mmol/L (3-11); BUN 17 mg/dL (7-18); Bilirubin, Total 0.4 mg/dL (0.2-1.0); CO2 34.1 mmol/L (21.0-32.0); CREATININE 0.7 mg/dL (0.70-1.30); Chloride 102 mmol/L (98-107); FREE T4 1.06 ng/dL (0.76-1.46); Glucose 112 mg/dL (74-106); Magnesium 2.2 mg/dL (1.8-2.4); Potassium 4.2 mmol/L (3.5-5.1); Sodium 139 mmol/L (136-145); TSH 1.17 uIU/mL (0.36-3.74); Total Protein 7.1 g/dL (6.4-8.2)
== END 2023-02-23 04:49 | disposition home or self-care (01) ==
LOC: LBO 04:48
PROVIDERS: PCP Family Medicine; Visit Provider Internal Medicine Medical Oncology
DX: Z79.899 Other long term (current) drug therapy (principal); C78.7 Secondary malignant neoplasm of liver and intrahepatic bile duct
CPT/HCPCS: 36415; 80053; 83735; 84439; 84443; 85025

== ENCOUNTER → 2023-03-09 00:56 | Outpatient (CLI) | payer MEDICAID, SELFPAY ==
--- NOTE | 2023-03-09 | DI.CT_ITS ---
Exam(s) CT CHEST/ABD/PEL W EXAM: CT CHEST/ABD/PEL W CLINICAL HISTORY: LUNG CANCER C34.92 NEOPLASM ESOPHAGUS C78.89 AND LIVER C78.7 ASSESS RESPONS. TECHNIQUE: Imaging Protocol: Axial computed tomography images with coronal and sagittal reformatted images were created and reviewed CONTRAST MATERIAL: Intravenous: Omnipaque 350 Contrast volume:100 ml Oral: None FINDINGS: CHEST: LUNGS: COPD/emphysema again noted. The size of the fissure adjacent nodular infiltrate in the latera l aspect of the apicoposterior segment of the left upper lobe has significantly decreased.. A smalle r noncalcified nodular density in the left lower lobe (series 4/image 46) is unchanged from the previ ous study, measuring 7 by 4 mm. More posteriorly in the left lower lobe there are 2 small nodular de nsities which appears slightly larger than previous, with each now measuring-4 mm, previously measuri ng 2-3 mm. No other significant focal left lung findings and no pleural effusion. In the opposite-right lung some scarring in the anterior segment of the right upper lobe is unchanged . Spiculated nodular infiltrate in the medial right upper lobe adjacent to the SVC is unchanged. A peripherally located nodule in the right upper lobe measuring 5 x 4 mm, 4 mm in from the pleural surf isaiah is unchanged. Scarring in the right middle lobe is unchanged. No pleural effusions. MEDIASTINUM: There is no hilar nor mediastinal adenopathy. The large neoplastic appearing mass in the esophagus seen on the prior November 2022 study is no longer seen. The esophagus is collapsed or r esected. CARDIAC: Heart size is normal. There is no pericardial effusion.Ascending thoracic aorta is enlarged measuring 3.8 cm. No dissection. Diameter of the arch and descending thoracic aorta slightly promi nent but unchanged. No dissection. No pulmonary emboli seen. OSSEOUS: No significant osseous lesions.No fractures.. ABDOMEN: There is no ascites. There is a percutaneous anterior abdominal wall gastric PEG in place which appe ars to be in satisfactory position. LIVER: There is a new hypodense lesion in the right hepatic lobe measuring 1.2 by 1.2 cm, not previou sly present and likely metastatic. Another smaller lesions seen peripherally in the right lobe measu ring 6 millimeters noted, possibly early metastatic. No focal findings in the left hepatic lobe. GALLBLADDER/BILIARY: Gallbladder wall slightly thickened but not edematous. No pericholecystic fluid . No obvious gallstones. CBD is not dilated. PANCREAS: No evidence of pancreatic mass nor dilatation of the pancreatic duct. SPLEEN: Spleen is not enlarged. There are no intrasplenic lesions. Splenic and portal veins are lópez nt. ADRENALS: There are no significant adrenal masses. KIDNEYS: No calculi nor hydronephrosis. No solid renal masses. Benign cortical cysts are again noted in both kidneys. The largest is in the superior pole of the right kidney and measures 3.3 x 3.4 cm. No solid renal lesions. No calculi nor hydronephrosis. ABDOMINAL AORTA: Atherosclerotic. Infrarenal abdominal aortic aneurysm with maximum diameter 2.8 cm. Common iliac arteries are calcified but not enlarged LYMPH NODES: There is no retroperitoneal nor paraaortic adenopathy. ABDOMINAL WALL: No evidence of significant anterior abdominal wall nor inguinal hernia. GI: There is no evidence of bowel obstruction. There is abundant fecal material in the colon. PELVIS: LYMPH NODES: There is no intrapelvic nor inguinal adenopathy. GI: No evidence of appendicitis.No evidence of sigmoid diverticulitis. URINARY BLADDER: Partially collapsed. No obvious abnormality. REPRODUCTIVE: Large prostate gland which measures 6 cm wide. OSSEOUS: No significant osseous lesions. IMPRESSION: 1. Compared to the prior CT scan of 12/06/2022 the previously described fissure adjacent spiculated p leural base nodule has significantly decreased in size. Other nodular densities in both lungs appear relatively stable with the exception of slight increase in size of 2 adjacent small nodules in the l eft lower lobe. Findings are superimposed upon COPD-emphysema. 2. No hilar nor mediastinal adenopathy. 3. The large see present 4.5 cm malignant-appearing esophagus mass is no longer seen. Esophagus is p resently collapsed or partially resected. There is a gastric PEG in place. There is no regional lym phadenopathy evident.. Also no subcarinal adenopathy. 4. Increasing lesions in the liver which are most probably metastatic given the history here. No asc ites. Other findings as above. RADIATION DOSE DELIVERED: Total DLP DATA REPOSITORY: All CT scans at this facility are submitted to the National Radiology Data Registry (NRDR) Dose Index Registry (DIR) with the [employer] (ACR). RADIATION OPTIMIZATION: All CT scans at this facility use at least one of these dose optimization te zay: automated exposure control; mA and/or kV adjustment per patient size (includes targeted exa ms where dose is matched to clinical indication); or iterative reconstruction.
[2023-03-09] MEDS: Barium Sulfate 2% W/V-Berry Smoothie 450 ML BTL 900 ML PO (10:52)
[2023-03-09] MEDS: Normal Saline - Diluent 50 ML VIAL IJ (12:35)
[2023-03-09] MEDS: Omnipaque 350 MG/ML 100 ML BTL IJ (12:36)
[2023-03-09] MEDS: Normal Saline Flush 10 ML SYR IVP (12:37)
== END ==
PROVIDERS: PCP Family Medicine; Visit Provider Nurse Practitioner Family
DX: C34.92 Malignant neoplasm of unspecified part of left bronchus or lung (principal); C78.7 Secondary malignant neoplasm of liver and intrahepatic bile duct
CPT/HCPCS: 74177; 71260; J3490

== ENCOUNTER 2023-03-16 04:50 | Outpatient (CLI) | payer MEDICAID, SELFPAY ==
[2023-03-16 08:47] LABS: Abs Immature Grans 0.04 10^3/uL (0.0-0.06); Absolute Basophil Count 0.04 10^3/uL (0.0-0.2); Absolute Lymphocyte Count 0.77 10^3/uL (1.2-3.4); Absolute Monocyte Count 0.56 10^3/uL (0.1-0.8); Absolute Neutrophil Count 5.27 10^3/uL (1.2-6.7); Basophils % 0.6; Eosinophils % 5.6; Immature Grans % 0.6; Lymphocytes % 10.9; MCH 29.2 pg (27.0-33.0); MCHC 30.8 % (32.0-36.0); MCV 95 fL (80-95); MPV 8.3 fL (8.0-11.0); Monocytes % 7.9; Neutrophils % 74.4; Platelet Count 330 10^3/uL (130-400); RBC 4.11 10^6/uL (4.36-5.78); RDW 13.4 % (11.8-14.1); WBC 7.08 10^3/uL (4.4-10.8)
[2023-03-16 09:13] LABS: ALT 387 U/L (16-63); AST 203 U/L (15-37); Albumin 2.9 g/dL (3.4-5.0); Alkaline Phosphatase 363 U/L (46-116); Anion Gap 0.7 mmol/L (3-11); BUN 17 mg/dL (7-18); Bilirubin, Total 0.4 mg/dL (0.2-1.0); CO2 33.3 mmol/L (21.0-32.0); CREATININE 0.7 mg/dL (0.70-1.30); Calcium 8.8 mg/dL (8.5-10.1); Chloride 103 mmol/L (98-107); FREE T4 0.83 ng/dL (0.76-1.46); Glucose 127 mg/dL (74-106); Potassium 4.8 mmol/L (3.5-5.1); Sodium 137 mmol/L (136-145); TSH 0.95 uIU/mL (0.36-3.74); Total Protein 6.4 g/dL (6.4-8.2)
[2023-03-16 20:36] LABS: HBs Antibody, Quant <3.1 mIU/mL (See Note); Hepatitis B Surface Ab Negative (See Note)
[2023-03-16 21:29] LABS: Hep B Core Antibody Negative (Negative)
[2023-03-16 21:38] LABS: Hep A Antibody IgM Negative (Negative)
[2023-03-17 08:28] LABS: Hepatitis B Surface Ag Negative (Negative)
[2023-03-17 09:02] LABS: Hepatitis C Ab w Rflx HCV PCR Negative (Negative)
== END 2023-03-16 04:51 | disposition home or self-care (01) ==
PROVIDERS: Internal Medicine Medical Oncology; PCP Family Medicine; Visit Provider Nurse Practitioner Family
DX: R79.89 Other specified abnormal findings of blood chemistry (principal)
CPT/HCPCS: 36415; 80053; 86704; 86706; 86709; 86803; 87340; 83735; 84439; 84443; 85025

== ENCOUNTER → 2023-05-04 01:15 | Outpatient (CLI) | payer MEDICAID, SELFPAY ==
--- NOTE | 2023-05-04 | DI.CT_ITS ---
Exam(s) CT CHEST/ABD/PEL W EXAM: CT CHEST/ABD/PEL W CLINICAL HISTORY: METS LUNG CANCER, RESTAGING WORSENING LFTS. TECHNIQUE: Imaging Protocol: Axial computed tomography images with coronal and sagittal reformatted images were created and reviewed CONTRAST MATERIAL: Intravenous: Omnipaque 350 Contrast volume:100 ml Oral: Yes. Oral contrast was also administered for bowel opacification. COMPARISON: CT CT CHEST/ABD/PEL W from 03/09/2023 FINDINGS: CHEST: LUNGS: There no new lung nodules. The right lung fissure adjacent nodule appears slightly smaller th an previous, presently measuring 5 mm and previously measuring 6 mm. Mild increased markings in the lateral right middle lobe are unchanged. No new infiltrates nor pleural effusions.. MEDIASTINUM: No new hilar nor mediastinal adenopathy. Visualized thyroid unremarkable. Esophagus is not dilated. No lymphadenopathy around the esophagus. CARDIAC: Heart size is normal. There is no pericardial effusion.Diameter of the ascending thoracic a corby is upper normal. OSSEOUS: No significant osseous lesions.Healed right clavicle fracture partially included in the fiel d of view. No lytic nor blastic osseous lesions evident.. ABDOMEN: There is no ascites. Percutaneous gastric PEG noted in satisfactory position. No evidence of inflam matory process at this level. LIVER: The size of the metastatic lesion in the right hepatic lobe has increased, presently measuring 2.2 x 2.0 cm. Lower down in the right hepatic lobe there is a similar appearing metastatic lesion n ow evident which has also increased in size, presently measuring 1.2 x 1.2 cm. There is a new lesion developing in the left hepatic lobe which presently measures 0.6 cm, not previously present. Minima lly prominent repetitive ducts are unchanged. GALLBLADDER/BILIARY: Somewhat patulous gallbladder noted but without obvious gallstones. CBD diamete r is 8 mm. No calculi evident in the lower CBD nor mass at this level. CBD is not dilated. PANCREAS: No evidence of pancreatic mass nor dilatation of the pancreatic duct. SPLEEN: Spleen is not enlarged. There are no intrasplenic lesions. Splenic and portal veins are lópez nt. ADRENALS: There are no significant adrenal masses. KIDNEYS: Benign bilateral renal cysts again noted which do not require follow-up. Largest of these i s again noted be in the superior pole the right kidney and measures 3.4 cm. There are no solid renal masses, calculi, nor hydronephrosis.. ABDOMINAL AORTA: Abdominal aorta is atherosclerotic and there is a fusiform infrarenal abdominal aort ic aneurysm with maximum external diameter 3 cm, unchanged. Atherosclerotic involvement of the iliac arteries noted but without aneurysms of these vessels. LYMPH NODES: There is no retroperitoneal nor paraaortic adenopathy. ABDOMINAL WALL: No evidence of significant anterior abdominal wall nor inguinal hernia. GI: There is no evidence of bowel obstruction. PELVIS: LYMPH NODES: There is no intrapelvic nor inguinal adenopathy. GI: No evidence of appendicitis.No evidence of sigmoid diverticulitis. URINARY BLADDER: No calculi nor masses evident REPRODUCTIVE: Enlarged prostate gland again noted. Measures 6 cm wide. OSSEOUS: No significant osseous lesions. IMPRESSION: 1. Compared to prior CT scan of 03/09/2023 there is increasing size and number of metastatic lesions in the liver, as described above. 2. No evidence of ascites nor new mesenteric masses. No bowel obstruction. 3. Gastric PEG appears satisfactory 4. No new intrathoracic findings. RADIATION DOSE DELIVERED: 1,014.13mGy.cm Total DLP DATA REPOSITORY: All CT scans at this facility are submitted to the National Radiology Data Registry (NRDR) Dose Index Registry (DIR) with the [employer] (ACR). RADIATION OPTIMIZATION: All CT scans at this facility use at least one of these dose optimization te chniques: automated exposure control; mA and/or kV adjustment per patient size (includes targeted exa ms where dose is matched to clinical indication); or iterative reconstruction.
[2023-05-04] MEDS: Barium Sulfate 2% W/V-Berry Smoothie 450 ML BTL PO ×2 (13:54→13:55)
[2023-05-04 14:24] LABS: Abs Immature Grans 0.12 10^3/uL (0.0-0.06); Absolute Basophil Count 0.02 10^3/uL (0.0-0.2); Absolute Eosinophil Count 0.02 10^3/uL (0.0-0.7); Absolute Lymphocyte Count 0.83 10^3/uL (1.2-3.4); Absolute Monocyte Count 0.52 10^3/uL (0.1-0.8); Absolute Neutrophil Count 6.34 10^3/uL (1.2-6.7); Basophils % 0.3; Eosinophils % 0.3; HCT 43.6 % (40.0-50.0); HGB 13.8 g/dL (13.5-17.5); Immature Grans % 1.5; Lymphocytes % 10.6; MCH 29.9 pg (27.0-33.0); MCHC 31.7 % (32.0-36.0); MCV 95 fL (80-95); MPV 8.3 fL (8.0-11.0); Monocytes % 6.6; Neutrophils % 80.7; Platelet Count 301 10^3/uL (130-400); RBC 4.61 10^6/uL (4.36-5.78); RDW 14.1 % (11.8-14.1); WBC 7.85 10^3/uL (4.4-10.8)
[2023-05-04 14:48] LABS: ALT 242 U/L (16-63); AST 75 U/L (15-37); Albumin 2.8 g/dL (3.4-5.0); Alkaline Phosphatase 458 U/L (46-116); Anion Gap 3.9 mmol/L (3-11); BUN 19 mg/dL (7-18); Bilirubin, Total 0.8 mg/dL (0.2-1.0); CO2 31.1 mmol/L (21.0-32.0); CREATININE 0.9 mg/dL (0.70-1.30); Calcium 8.3 mg/dL (8.5-10.1); Chloride 104 mmol/L (98-107); Estimated GFR 98.38 (mL/min/1.73m2); FREE T4 1.06 ng/dL (0.76-1.46); Glucose 95 mg/dL (74-106); Magnesium 2.3 mg/dL (1.8-2.4); Potassium 4.2 mmol/L (3.5-5.1); Sodium 139 mmol/L (136-145); TSH 1.44 uIU/mL (0.36-3.74); Total Protein 6.2 g/dL (6.4-8.2)
[2023-05-04] MEDS: Omnipaque 350 MG/ML 100 ML BTL IJ (15:49)
[2023-05-04] MEDS: Normal Saline - Diluent 50 ML VIAL IJ (15:50)
== END ==
PROVIDERS: PCP Family Medicine; Visit Provider Internal Medicine Medical Oncology
DX: C78.89 Secondary malignant neoplasm of other digestive organs (principal); C34.92 Malignant neoplasm of unspecified part of left bronchus or lung
CPT/HCPCS: 74177; 80053; 71260; 83735; 84439; 84443; 85025; J3490

== ENCOUNTER → 2023-07-21 00:35 | Outpatient (CLI) | payer MEDICAID, SELFPAY ==
--- NOTE | 2023-07-21 | DI.CT_ITS ---
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 The airway is otherwise clear. Pulmonary parenchyma: Marked emphysematous changes are present in the lungs. There is a nodule in th e lateral aspect of the left lower lobe which now measures 6 mm compared to 3 mm on the prior examina tion. (Series 5, image 663). There has been interval increase in size of 2 adjacent nodules in the posterior aspect of the left lower lobe. There are now indistinct as 1 nodule measuring 9.4 mm in to giovany. (Series 5, image 545). The triangular nodule associated with the right middle fissure appears stable. The spiculated nodular area along the medial aspect of the right upper lobe is unchanged. ( Series 5, image 255). No focal consolidating infiltrates are seen. Visualized thyroid gland: Unremarkable. Mediastinum and Paloma: No dominant adenopathy or fluid collection. The esophagus is unremarkable. Sma ll hiatal hernia. Pleura: No effusion or pneumothorax. Heart: The heart is not dilated. No coronary artery calcifications are seen. No pericardial effusion. Pulmonary arteries: No pulmonary emboli are identified. Aorta: Thoracic aorta non-dilated. No evidence of dissection. Mild atherosclerotic calcification. Lymph nodes: Within normal limits. Soft tissues: Unremarkable. Bones:Within normal limits for the patient's age. There is a new mild compression fracture deformity of the superior endplate of L2. There is also a new superior compression fracture deformity of the superior endplate of T11 and the inferior endplate of T10. There is also mild compression of the sup erior endplate of T6 which is new. ABDOMEN: Liver: Normal density. Numerous hepatic metastases. They have shown interval increase in size and nu mber compared to the prior examination. The largest met tasks is cyst is in the posterior segment of the right lobe and measures 3.9 x 3.1 cm. This compares to 2.1 by 1.9 cm. Portal, Superior Mesenteric, and Splenic Veins: Unremarkable. Gallbladder and Biliary Tract: No radiodense calculus or dilation. Pancreas: Normal density, no abnormal calcifications or inflammatory process. Spleen: Normal. Adrenals: Stable appearance of the adrenal glands. Kidneys: Normal size, contour and axis. Bilateral nephrolithiasis. No obstructive uropathy. Bilater al simple renal cysts. No follow-up is recommended. Abdominal Aorta: There is ectasia of the abdominal aorta. Atherosclerotic calcification is present. Bowel: There is a moderate amount of stool predominantly in the right and transverse colon. There is no evidence of bowel obstruction or bowel wall thickening. No evidence of appendicitis. Peritoneal Cavity: No ascites, collection or mesenteric inflammatory response. No free air. Lymph Nodes: Within normal limits. Bones: Within normal limits for the patient's age. Sclerotic lesions are now seen in the sacrum and the iliac bones bilaterally consistent with metastatic disease. Soft Tissues: Unremarkable. PELVIS: Bladder: The urinary bladder is incompletely distended limiting evaluation. Reproductive Organs: Prostate gland is enlarged. Lymph Nodes: Within normal limits. Bones: Within normal limits. IMPRESSION: 1. There has been interval progression of metastatic disease characterized by increased size of the p ulmonary metastases and hepatic metastases, development of osseous metastatic disease best appreciate d in the pelvis and sacrum. 2. New fractures involving T6, T10, T11 and L2 which are likely pathologic. RADIATION DOSE DELIVERED: 968.06mGy.cm Total DLP DATA REPOSITORY: All CT scans at this facility are submitted to the National Radiology Data Registry (NRDR) Dose Index Registry (DIR) with the [employer] (ACR). RADIATION OPTIMIZATION: All CT scans at this facility use at least one of these dose optimization te chniques: automated exposure control; mA and/or kV adjustment per patient size (includes targeted exa ms where dose is matched to clinical indication); or iterative reconstruction.
[2023-07-21] MEDS: Normal Saline - Diluent 50 ML VIAL IJ (14:29)
[2023-07-21] MEDS: Omnipaque 350 MG/ML 500 ML BTL-Imaging package IJ (14:30)
[2023-07-21] MEDS: Barium Sulfate 2% W/V-Berry Smoothie 450 ML BTL PO ×2 (14:44→14:45)
== END ==
PROVIDERS: PCP Family Medicine; Visit Provider Internal Medicine Medical Oncology
DX: C78.89 Secondary malignant neoplasm of other digestive organs (principal); C34.92 Malignant neoplasm of unspecified part of left bronchus or lung
CPT/HCPCS: 74177; 71260

== ENCOUNTER → 2023-09-13 02:13 | Outpatient (CLI) | payer MEDICAID, SELFPAY ==
[2023-09-13 10:10] LABS: Abs Immature Grans 0.15 10^3/uL (0.0-0.06); Absolute Lymphocyte Count 1.42 10^3/uL (1.2-3.4); Absolute Monocyte Count 0.94 10^3/uL (0.1-0.8); Basophils % 0.2 %; Eosinophils % 0.2 %; HCT 42.5 % (40.0-50.0); HGB 13.4 g/dL (13.5-17.5); Immature Grans % 1.2 %; Lymphocytes % 11.4 %; MCH 29.8 pg (27.0-33.0); MCHC 31.5 % (32.0-36.0); MCV 94 fL (80-95); MPV 8.3 fL (8.0-11.0); Monocytes % 7.6 %; Neutrophils % 79.4 %; Platelet Count 285 10^3/uL (130-400); RDW 13.3 % (11.8-14.1); WBC 12.43 10^3/uL (4.4-10.8)
[2023-09-13] MEDS: Barium Sulfate 2% W/V-Creamy Vanilla Smoothie 450 ML BTL PO ×2 (10:13→10:14)
[2023-09-13 10:14] LABS: Absolute Basophil Count 0.02 10^3/uL (0.0-0.2); Absolute Eosinophil Count 0.02 10^3/uL (0.0-0.7); Absolute Neutrophil Count 9.87 10^3/uL (1.2-6.7)
[2023-09-13 10:34] LABS: ALT 70 U/L (16-63); AST 29 U/L (15-37); Albumin 3.1 g/dL (3.4-5.0); Alkaline Phosphatase 333 U/L (46-116); Anion Gap 6.1 mmol/L (3-11); BUN 17 mg/dL (7-18); Bilirubin, Total 0.45 mg/dL (0.2-1.0); CO2 32.9 mmol/L (21.0-32.0); CREATININE 0.8 mg/dL (0.70-1.30); Calcium 9.3 mg/dL (8.5-10.1); Chloride 102 mmol/L (98-107); Estimated GFR 101.95 (mL/min/1.73m2); Glucose 98 mg/dL (74-106); Potassium 4.4 mmol/L (3.5-5.1); Sodium 141 mmol/L (136-145); Total Protein 6.9 g/dL (6.4-8.2)
[2023-09-13] MEDS: Omnipaque 350 MG/ML 100 ML BTL IJ (11:36)
[2023-09-13] MEDS: Normal Saline - Diluent 50 ML VIAL IJ (11:36)
[2023-09-13] MEDS: Normal Saline Flush 10 ML SYR IVP (11:37)
--- NOTE | 2023-09-13 11:54 | DI.CT_ITS ---
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 TECHNIQUE: Imaging Protocol: Axial computed tomography images with coronal and sagittal reformatted images were created and reviewed CONTRAST MATERIAL: Intravenous: Omnipaque 350 Contrast volume:100 ml Oral: None COMPARISON: CT CT CHEST/ABD/PEL W from 07/21/2023 FINDINGS: CHEST: LUNGS: Hyperinflation COPD changes again noted.. Small 5 millimeter nodule laterally in the right up per lobe is unchanged from 07/21/2023. No new right lung nodules evident. Peripheral scarring in th e left upper lobe is unchanged. In post yearly in left lower lobe there is a 9 by 7 mm nodular densi ty which has slightly increased in size and probably metastatic. There is also a nodule in the anter ior basal segment of the left lower lobe which presently measures 5 mm, unchanged from previous. The re are no new lung nodules and there are no pleural effusions. No new infiltrates. No significant f indings in the trachea and mainstem bronchi. MEDIASTINUM: There is oral contrast throughout a milder at lead dilated esophagus. There is no hilar nor mediastinal adenopathy. Partially visualized thyroid appears unremarkable. There is no adenopa thy adjacent to the esophagus. CARDIAC: Heart size is normal. There is no pericardial effusion.Caliber of the thoracic aorta is wit hin upper normal limits. No evidence of dissection. OSSEOUS: There is concerning appearance of T6 vertebral body which exhibits further height loss when compared to 07/21/2023. There is also some height loss again noted in the T10 and T11 vertebral bodi es, slightly more so than previous these may be metastatic. . ABDOMEN: There is no ascites. LIVER: The there has been some further progression in size and number of metastatic lesions throughou t both hepatic lobes. GALLBLADDER/BILIARY: No obvious gallbladder pathology. CBD is not dilated. PANCREAS: No evidence of pancreatic mass nor dilatation of the pancreatic duct. SPLEEN: Spleen is not enlarged. There are no intrasplenic lesions. Splenic and portal veins are lópez nt. ADRENALS: There are no significant adrenal masses. KIDNEYS: There are benign cysts in both kidneys. The largest cyst is in the superior pole of the rig ht kidney and measures 4 by 3.2 cm. These benign cysts do not require further imaging workup. There are no solid renal lesions. There is a single nonobstructive punctate calculus in the mid right kid mo again noted. No hydronephrosis nor hydroureter. No radiopaque calculi in the urinary bladder alicia men.. ABDOMINAL AORTA: The abdominal aorta is atherosclerotic. There is a fusiform aneurysm of the infrare nal abdominal aorta which exhibits maximum diameter of 2.8 cm, unchanged. Arterial megaly does not c ontinue into the iliac arteries which are of normal diameter. LYMPH NODES: There is no retroperitoneal nor paraaortic adenopathy. ABDOMINAL WALL: No evidence of significant anterior abdominal wall nor inguinal hernia. GI: There is no evidence of bowel obstruction. PELVIS: LYMPH NODES: There is no intrapelvic nor inguinal adenopathy. GI: No evidence of appendicitis.No evidence of sigmoid diverticulitis. URINARY BLADDER: No calculi nor masses evident REPRODUCTIVE: Prostate enlargement noted. Urinary bladder is not overly distended. OSSEOUS: No fractures. However, there are significant osseous lesions in both sides of the sacrum wh ich have increased in size from the prior study. Largest is on the right side and measures 2 cm wide by 1 0.8 cm AP by 2.8 cm craniocaudal and is associated with cortical disruption and extension beyon d the posterior cortex of the right-side of the sacrum, more so than previous. Another similar bone lesion in the left iliac bone has significantly increased in size from previous but not associated with cortical disruption at this time. Another is also seen in the right iliac wi ng significantly increased and with cortical dehiscence. IMPRESSION: 1. Compared to the prior CT scan of July 21, 2023 there has been some deterioration with increasing siz e and number of metastatic lesions throughout both lobes of the liver. Also increasing size and numb er of metastatic bone lesions in both sides of the pelvis and both sides of the sacrum. Some of thes e osseous lesions exhibit cortical dehiscence. 2. Stable appearance of previously described lung nodule with perhaps minimal increase in size of a l eft lower lobe nodule which presently measures 9 x 7 mm implying approximately 1 mm growth from the p revious study. No new lung nodules, pleural effusions nor new intrathoracic adenopathy. 3. Presently nonobstructive 2 millimeter calculus in the midpole level of the right kidney. 4. Other findings as above. RADIATION DOSE DELIVERED: 855.28mGy.cm Total DLP DATA REPOSITORY: All CT scans at this facility are submitted to the National Radiology Data Registry (NRDR) Dose Index Registry (DIR) with the [employer] (ACR). RADIATION OPTIMIZATION: All CT scans at this facility use at least one of these dose optimization te chniques: automated exposure control; mA and/or kV adjustment per patient size (includes targeted exa ms where dose is matched to clinical indication); or iterative reconstruction.
== END ==
PROVIDERS: PCP Family Medicine; Visit Provider Internal Medicine Medical Oncology
DX: C78.89 Secondary malignant neoplasm of other digestive organs (principal); C34.92 Malignant neoplasm of unspecified part of left bronchus or lung; N20.0 Calculus of kidney
CPT/HCPCS: 74177; 80053; 71260; 83735; 85025; J3490